=== PATIENT | female | born 1945 | race Caucasian/White ===

== ENCOUNTER → 2017-11-10 | Outpatient (CLI) | payer MEDICARE, OTHER ==
[~2017-11-10] MED LIST: LISI10TA2 PO; OXYCODONE; PANT40TA2 PO; RELAFEN; TURM538C PO
[2017-11-10 10:10] LABS: BASOPHILS % (AUTO) 1 % (0-10); EOSINOPHILS # (AUTO) 0.1 10^3/uL (0.0-0.3); EOSINOPHILS % (AUTO) 1 % (0-10); HEMATOCRIT 39 % (35-52); LYMPHOCYTES # (AUTO) 1.5 X 10^3 (1.0-4.0); LYMPHOCYTES % (AUTO) 26 % (12-44); MEAN CORPUSCULAR HEMOGLOBIN 30 PG (25-34); MEAN CORPUSCULAR HGB CONC 34 G/DL (32-36); MEAN CORPUSCULAR VOLUME 88 FL (80-99); MEAN PLATELET VOLUME 10.1 FL (7.4-10.4); MONOCYTES # (AUTO) 0.4 X 10^3 (0.0-1.0); MONOCYTES % (AUTO) 6 % (0-12); NEUTROPHILS # (AUTO) 3.8 X 10^3 (1.8-7.8); NEUTROPHILS % (AUTO) 66 % (42-75); PLATELET COUNT 252 10^3/uL (130-400); RED BLOOD COUNT 4.38 10^6/uL (4.35-5.85); RED CELL DISTRIBUTION WIDTH 13.4 % (10.0-14.5); WHITE BLOOD COUNT 5.8 10^3/uL (4.3-11.0)
[2017-11-10 10:31] LABS: ALANINE AMINOTRANSFERASE 15 U/L (0-55); ALBUMIN 4.2 GM/DL (3.2-4.5); ALKALINE PHOSPHATASE 111 U/L (40-136); BILIRUBIN,TOTAL 0.9 MG/DL (0.1-1.0); BUN/CREATININE RATIO 17; CALCIUM 9.7 MG/DL (8.5-10.1); CARBON DIOXIDE 28 MMOL/L (21-32); CHLORIDE 106 MMOL/L (98-107); CHOLESTEROL 273 MG/DL (< 200); CREATININE SERUM 0.83 MG/DL (0.60-1.30); GFR ESTIMATED > 60; GLUCOSE 95 MG/DL (70-105); HDL CHOLESTEROL 58 MG/DL (40-60); POTASSIUM 4.8 MMOL/L (3.6-5.0); SODIUM 141 MMOL/L (135-145); TOTAL PROTEIN 7.6 GM/DL (6.4-8.2); TRIGLYCERIDES 186 MG/DL (<150); VLDL CHOLESTEROL 37 MG/DL (5-40)
== END ==
LOC: LAB 09:22
PROVIDERS: ATTEND Nurse Practitioner Family
DX: I10 Essential (primary) hypertension (principal); R53.83 Other fatigue
CPT/HCPCS: 36415; 80053; 80061; 84443; 85025

== ENCOUNTER 2017-12-22 11:55 | Emergency (ER) | payer MEDICARE, OTHER ==
[~2017-12-22] VITALS: Ht 152.4 cm; Wt 71.2 kg
[~2017-12-22 11:55] MED LIST changes: -LISI10TA2 PO; -PANT40TA2 PO; -TURM538C PO
--- NOTE | 2017-12-22 12:21 | ED General ---
General Stated Complaint: RT SIDE PAIN,RADIATING TO BACK Source of Information: Patient Exam Limitations: No Limitations History of Present Illness Date Seen by Provider: December 22, 2017 Time Seen by Provider: 12:18 Initial Comments To ER with reports of right sided upper abdominal pain for 5 years worse for the past 5 days. Pain seems to be worse with movement and food does make this worse sometimes as well. She does report nausea currently and pain rated at 6 out of 10 but declines pain medication or nausea medication. She denies shortness of breath. She does report urinary frequency and her stools seem to be very "beige" Timing/Duration: Getting Worse, Intermittent Severity: Moderate Associated Systoms: Nausea/Vomiting Allergies and Home Medications Allergies Coded Allergies: Hydrocodone (Verified Allergy, PASSING OUT, 04/16/12) ciprofloxacin (Unverified Allergy, 07/21/10) iodine (Unverified Allergy, 07/21/10) Uncoded Allergies: STEROIDS (Adverse Reaction, 07/21/10) Patient Home Medication List Home Medication List Reviewed: Yes Review of Systems Constitutional: see HPI EENTM: see HPI Respiratory: no symptoms reported Cardiovascular: no symptoms reported Gastrointestinal: RUQ, abdominal pain, nausea Genitourinary: no symptoms reported Musculoskeletal: no symptoms reported Skin: no symptoms reported Psychiatric/Neurological: No Symptoms Reported Hematologic/Lymphatic: No Symptoms Reported Immunological/Allergic: no symptoms reported Past Takwzlu-Ceiynr-Ozvjud Hx Patient Social History Recent Foreign Travel: No Contact w/Someone Who Travel: No Physical Exam Vital Signs Vital Signs - First Documented 12/22/17 12:15 Temp 97.2 Pulse 83 Resp 18 B/P (MAP) 182/100 (127) Pulse Ox 98 Capillary Refill : General Appearance: No Apparent Distress, WD/WN Eyes: Bilateral Eye Normal Inspection, Bilateral Eye PERRL, Bilateral Eye EOMI HEENT: PERRL/EOMI, TMs Normal Neck: Full Range of Motion, Normal Inspection Respiratory: No Accessory Muscle Use, No Respiratory Distress Cardiovascular: Regular Rate, Rhythm, Normal Peripheral Pulses Gastrointestinal: Normal Bowel Sounds, Non Tender, Soft Extremity: Normal Capillary Refill, Normal Inspection Neurologic/Psychiatric: Alert, Oriented x3 Skin: Normal Color, Warm/Dry Comments Tenderness to palpation to the very lateral aspect of the right side of the abdomen Progress/Results/Core Measures Suspected Sepsis SIRS Temperature: Pulse: Respiratory Rate: Laboratory Tests 12/22/17 12:15: White Blood Count 5.7 Blood Pressure / Mean: Laboratory Tests 12/22/17 12:15: Creatinine 0.76, INR Comment 0.9, Platelet Count 253, Total Bilirubin 0.5 Results/Orders Lab Results Laboratory Tests Test 12/22/17 12:15 12/22/17 15:00 Range/Units White Blood Count 5.7 4.3-11.0 10^3/uL Red Blood Count 4.16 L 4.35-5.85 10^6/uL Hemoglobin 12.5 11.5-16.0 G/DL Hematocrit 37 35-52 % Mean Corpuscular Volume 88 80-99 FL Mean Corpuscular Hemoglobin 30 25-34 PG Mean Corpuscular Hemoglobin Concent 34 32-36 G/DL Red Cell Distribution Width 13.3 10.0-14.5 % Platelet Count 253 130-400 10^3/uL Mean Platelet Volume 10.6 H 7.4-10.4 FL Neutrophils (%) (Auto) 63 42-75 % Lymphocytes (%) (Auto) 29 12-44 % Monocytes (%) (Auto) 7 0-12 % Eosinophils (%) (Auto) 1 0-10 % Basophils (%) (Auto) 0 0-10 % Neutrophils # (Auto) 3.6 1.8-7.8 X 10^3 Lymphocytes # (Auto) 1.7 1.0-4.0 X 10^3 Monocytes # (Auto) 0.4 0.0-1.0 X 10^3 Eosinophils # (Auto) 0.1 0.0-0.3 10^3/uL Basophils # (Auto) 0.0 0.0-0.1 10^3/uL Prothrombin Time 12.4 12.2-14.7 SEC INR Comment 0.9 0.8-1.4 Sodium Level 139 135-145 MMOL/L Potassium Level 4.2 3.6-5.0 MMOL/L Chloride Level 106 98-107 MMOL/L Carbon Dioxide Level 27 21-32 MMOL/L Anion Gap 6 5-14 MMOL/L Blood Urea Nitrogen 9 7-18 MG/DL Creatinine 0.76 0.60-1.30 MG/DL Estimat Glomerular Filtration Rate > 60 BUN/Creatinine Ratio 12 Glucose Level 82 70-105 MG/DL Calcium Level 9.6 8.5-10.1 MG/DL Total Bilirubin 0.5 0.1-1.0 MG/DL Aspartate Amino Transf (AST/SGOT) 14 5-34 U/L Alanine Aminotransferase (ALT/SGPT) 16 0-55 U/L Alkaline Phosphatase 104 40-136 U/L Total Protein 7.4 6.4-8.2 GM/DL Albumin 4.2 3.2-4.5 GM/DL Urine Color YELLOW Urine Clarity CLEAR Urine pH 7 5-9 Urine Specific [place] 1.010 L 1.016-1.022 Urine Protein NEGATIVE NEGATIVE Urine Glucose (UA) NEGATIVE NEGATIVE Urine Ketones NEGATIVE NEGATIVE Urine Nitrite NEGATIVE NEGATIVE Urine Bilirubin NEGATIVE NEGATIVE Urine Urobilinogen NORMAL NORMAL MG/DL Urine Leukocyte Esterase NEGATIVE NEGATIVE Urine RBC (Auto) NEGATIVE NEGATIVE Urine RBC NONE /HPF Urine WBC NONE /HPF Urine Squamous Epithelial Cells 2-5 /HPF Urine Crystals NONE /LPF Urine Bacteria NEGATIVE /HPF Urine Casts NONE /LPF Urine Mucus NEGATIVE /LPF Urine Culture Indicated NO My Orders Orders - CARTER NAZARIO APRN Cbc With Automated Diff (12/22/17 12:17) Comprehensive Metabolic Panel (12/22/17 12:17) Ua Culture If Indicated (12/22/17 12:17) Protime With Inr (12/22/17 12:17) Iv Heplock-Insert (Order) (12/22/17 12:17) Us Gallbladder [id number] (12/22/17 12:17) Ct Abdomen/Pelvis Wo (12/22/17 13:49) Vital Signs/I&O 12/22/17 12:15 Temp 97.2 Pulse 83 Resp 18 B/P (MAP) 182/100 (127) Pulse Ox 98 Capillary Refill : Departure Impression Primary Impression: Diaphragmatic hernia Additional Impression: Right upper quadrant abdominal pain Disposition: HOME, SELF-CARE Condition: Stable Departure-Patient Inst. Decision time for Depature: 15:55 Referrals: NO,LOCAL PHYSICIAN (PCP) Primary Care Physician DEMI LEE APRN (Family) Primary Care Physician Patient Instructions: No Instuctions Given Add. Discharge Instructions: 1. Call today to make an appointment for follow-up with Dr. Chavis's clinic. Return to ER for any worsening pain fevers or other concerns. Copy Copies To 1: JARRELL CHAVIS PETER J APRN December 22, 2017 12:21
[2017-12-22 12:30] LABS: BASOPHILS % (AUTO) 0 % (0-10); EOSINOPHILS # (AUTO) 0.1 10^3/uL (0.0-0.3); EOSINOPHILS % (AUTO) 1 % (0-10); HEMATOCRIT 37 % (35-52); HEMOGLOBIN 12.5 G/DL (11.5-16.0); LYMPHOCYTES # (AUTO) 1.7 X 10^3 (1.0-4.0); LYMPHOCYTES % (AUTO) 29 % (12-44); MEAN CORPUSCULAR HEMOGLOBIN 30 PG (25-34); MEAN CORPUSCULAR HGB CONC 34 G/DL (32-36); MEAN CORPUSCULAR VOLUME 88 FL (80-99); MEAN PLATELET VOLUME 10.6 FL (7.4-10.4); MONOCYTES # (AUTO) 0.4 X 10^3 (0.0-1.0); MONOCYTES % (AUTO) 7 % (0-12); NEUTROPHILS # (AUTO) 3.6 X 10^3 (1.8-7.8); NEUTROPHILS % (AUTO) 63 % (42-75); PLATELET COUNT 253 10^3/uL (130-400); RED BLOOD COUNT 4.16 10^6/uL (4.35-5.85); RED CELL DISTRIBUTION WIDTH 13.3 % (10.0-14.5); WHITE BLOOD COUNT 5.7 10^3/uL (4.3-11.0)
[2017-12-22 12:38] LABS: INR 0.9 (0.8-1.4); PROTHROMBIN TIME PATIENT 12.4 SEC (12.2-14.7)
[2017-12-22 12:44] LABS: ALANINE AMINOTRANSFERASE 16 U/L (0-55); ALBUMIN 4.2 GM/DL (3.2-4.5); ALKALINE PHOSPHATASE 104 U/L (40-136); BILIRUBIN,TOTAL 0.5 MG/DL (0.1-1.0); BUN/CREATININE RATIO 12; CALCIUM 9.6 MG/DL (8.5-10.1); CARBON DIOXIDE 27 MMOL/L (21-32); CHLORIDE 106 MMOL/L (98-107); CREATININE SERUM 0.76 MG/DL (0.60-1.30); GFR ESTIMATED > 60; GLUCOSE 82 MG/DL (70-105); POTASSIUM 4.2 MMOL/L (3.6-5.0); SODIUM 139 MMOL/L (135-145); TOTAL PROTEIN 7.4 GM/DL (6.4-8.2)
--- NOTE | 2017-12-22 13:06 | Diagnostic Imaging Report ---
EXAM: RIGHT UPPER QUADRANT ULTRASOUND. DATE: December 22, 2017. COMPARISON: CT abdomen and pelvis March 22, 2010. INDICATION: 72-year-old female, right-sided abdominal pain. PROCEDURE: Two-dimensional grayscale and color Doppler ultrasound examination of the right upper quadrant is performed. FINDINGS: Liver: The liver is of normal size and echotexture without solid or cystic masses. Bile ducts and gallbladder: There is no pericholecystic fluid, gallbladder wall thickening, or gallstones. The gallbladder wall measures 0.2 cm. There is no intrahepatic bile duct dilation. The common bile duct is not well demonstrated. Right kidney: Unremarkable right kidney. No hydronephrosis. The right kidney measures 8.8 cm x 4.2 cm x 4.3 cm. Pancreas: The pancreas is not well seen. IMPRESSION: 1. No evidence of cholelithiasis or findings to suggest acute cholecystitis. 2. No intrahepatic bile duct dilation. The common bile duct is not well seen. 3. Unremarkable sonographic appearance of the liver parenchyma. 4. The pancreas is not well seen. Dictated by: Dictated on workstation # [id number]
--- NOTE | 2017-12-22 14:21 | Diagnostic Imaging Report ---
PROCEDURE: CT abdomen and pelvis without contrast. TECHNIQUE: Multiple contiguous axial images were obtained through the abdomen and pelvis without the use of intravenous contrast. INDICATION: Mid abdomen pain on the right for seven days. Allergy to iodine reported. COMPARISON: 03/22/2010. FINDINGS: The lung bases are clear. There is a small fat-containing diaphragmatic hernia posteriorly on the right, which appears stable. The heart is normal in size. There is no pericardial effusion. A small hiatal hernia is present. The liver is unremarkable. The spleen appears normal. The adrenal glands are normal. The pancreas is unremarkable. The kidneys appear normal with no hydronephrosis or calculi present. The bowel loops are nondistended without evidence of obstruction. The appendix is not definitely seen; however, no secondary signs of appendicitis are identified. There is no free fluid or free air seen. There is mild calcific atherosclerosis. No lymph nodes appear enlarged by CT size criteria. Degenerative changes are seen in the spine. No acute osseous abnormality is seen. IMPRESSION: 1. No acute abdominopelvic abnormality is seen. 2. Stable small right fat-containing diaphragmatic hernia and small hiatal hernia. Dictated by: Dictated on workstation # [id number]
[2017-12-22 15:15] LABS: BILIRUBIN,URINE NEGATIVE (NEGATIVE); CLARITY,URINE CLEAR; COLOR,URINE YELLOW; GLUCOSE, URINE (UA) NEGATIVE (NEGATIVE); KETONES,URINE NEGATIVE (NEGATIVE); LEUKOCYTE ESTERASE ,URINE NEGATIVE (NEGATIVE); NITRITE,URINE NEGATIVE (NEGATIVE); PH,URINE 7 (5-9); PROTEIN,URINE NEGATIVE (NEGATIVE); UROBILINOGEN,URINE NORMAL (NORMAL)
[2017-12-22 15:28] LABS: BACTERIA,URINE NEGATIVE /HPF
[2017-12-22 16:14] VITALS: BP 182/88
== END 2017-12-22 16:14 | disposition home or self-care (01) ==
LOC: EDUNIT# 11:55 → ER 11:57
DX: K44.9 Diaphragmatic hernia without obstruction or gangrene (principal); Z88.5 Allergy status to narcotic agent; Z88.1 Allergy status to other antibiotic agents; Z91.041 Radiographic dye allergy status
CPT/HCPCS: 36415; 74176; 76705; 80053; 81000; 85025; 85610

== ENCOUNTER 2018-01-13 05:40 | Outpatient (CLI) | payer MEDICARE, OTHER ==
[~2018-01-13] VITALS: Ht 152.4 cm; Wt 71.2 kg
[2018-01-13] MEDS ORDERED: LISI10TA2 PO (11:54)
[2018-01-13] MEDS ORDERED: TURM538C PO (11:54)
== END 2018-01-13 11:59 | disposition home or self-care (01) ==
LOC: PREOP 05:40
PROVIDERS: ATTEND Surgery
DX: Z01.818 Encounter for other preprocedural examination (principal)

== ENCOUNTER 2018-02-03 09:44 | Day surgery (SDC) | payer MEDICARE, OTHER ==
[~2018-02-03] VITALS: Ht 152.4 cm; Wt 71.2 kg
[~2018-02-03 09:44] MED LIST changes: +LISI10TA2 PO; +TURM538C PO
--- OUTSIDE RECORDS SUMMARY | 2018-02-03 09:48 | XMS REPORT | Continuity of Care Document ---
Author Author [facility] Organization [facility] Address Unknown Phone Unavailable Allergies Active Description Code Type Severity Reaction Onset Reported/Identified Relationship to Patient Clinical Status Yes ANTIBIOTICS EXCEPT AUGMENTIN UNKNOWN OTHER Yes CIPRO UNKNOWN DERMATOLOGICAL - ANTONETTE Yes STEROIDS UNKNOWN OTHER Yes ciprofloxacin [id number] Drug Allergy Unknown N/A 01/13/2018 Yes hydrocodone [id number] Drug Allergy Unknown PASSING OUT 01/13/2018 Yes iodine [id number] Drug Allergy Unknown N/A 01/13/2018 Yes STEROIDS STEROIDS Unknown N/A 01/13/2018 Medications Medication Packaging Start Date Stop Date Route Dosage Sig MECLIZINE TAB 25 MG (ANTIVERT) MG 08/16/2017 08/16/2017 PRN ONCE LISINOPRIL TAB 10 MG (ZESTRIL) MG 08/16/2017 08/16/2017 ONCE&1201 Problems Date Dx Coded Attending Type Code Diagnosis Diagnosed By 07/21/2010 Ot 719.45 07/21/2010 Ot 789.09 04/16/2012 Ot 816.01 04/16/2012 Ot 883.0 04/16/2012 Ot 959.5 04/16/2012 Ot E000.8 04/16/2012 Ot E849.0 04/16/2012 Ot E918 02/16/2015 Ot 789.01 02/16/2015 Ot V88.01 02/16/2015 Ot 715.09 02/16/2015 Ot 729.1 02/16/2015 Ot V58.69 02/16/2015 TURNER LOPEZ, DEDRICK Riley Ot V76.12 02/16/2015 RAMON LOPEZ, URSULA Garnett Ot 724.5 02/16/2015 RAMON LOPEZ, URSULA Garnett Ot 737.30 02/16/2015 RAMON LOPEZ, URSULA Garnett Ot V72.62 02/16/2015 RAMON LOPEZ, URSULA Garnett Ot V76.12 02/16/2015 KETURAH DEL RIO FORGING PRESS LEVER TENDER Ot V76.12 03/09/2015 KETURAH DEL RIO FORGING PRESS LEVER TENDER Ot V76.12 08/16/2017 JOVANA DELGADO W 461.9 ACUTE SINUSITIS, UNSPECIFIED 08/16/2017 MARIBELLGLMEMO MILLERARA W 599.0 URINARY TRACT INFECTION, SITE NOT SPECIFIED 08/16/2017 MARIBELLGLMEMO MILLERARA A 780.4 DIZZINESS AND GIDDINESS 08/16/2017 BATCATGLANGELA JOVANA W J01.90 ACUTE SINUSITIS, UNSPECIFIED 08/16/2017 BATTAGLER JOVANA W N39.0 URINARY TRACT INFECTION, SITE NOT SPECIFIED 08/16/2017 BRITTNYTAMEMO CNOTEARA A R42 DIZZINESS AND GIDDINESS 11/10/2017 TURNER LOPEZ, DEDRICK Riley Ot V76.12 OTH SCREEN MAMMO-MALIGN NEOPLASM OF [place]ACH[place] 11/10/2017 RAMON LOPEZ, URSULA Garnett Ot 724.5 BACKACHE NOS 11/10/2017 RAMON LOPEZ, URSULA Garnett Ot 737.30 IDIOPATHIC SCOLIOSIS 11/10/2017 RAOMN LOPEZ, URSULA Garnett Ot V72.62 LAB EXAM ORDERED PART OF A ROUTINE GE 11/10/2017 RAMON LOPEZ, URSULA Garnett Ot V76.12 OTH SCREEN MAMMO-MALIGN NEOPLASM OF [place] 11/10/2017 KETURAH DEL RIO FORGING PRESS LEVER TENDER Ot V76.12 OTH SCREEN MAMMO-MALIGN NEOPLASM OF [place] 11/11/2017 DEMI LEE R BEHAVIORAL HEALTH COUNSELOR Ot I10 ESSENTIAL (PRIMARY) HYPERTENSION 11/11/2017 DEMI LEE R BEHAVIORAL HEALTH COUNSELOR Ot R53.83 OTHER FATIGUE 12/01/2017 ROSA DEMI R BEHAVIORAL HEALTH COUNSELOR Ot I10 ESSENTIAL (PRIMARY) HYPERTENSION 12/01/2017 YOLIS LEEINA R BEHAVIORAL HEALTH COUNSELOR Ot R53.83 OTHER FATIGUE 12/22/2017 ROSA DEMI R BEHAVIORAL HEALTH COUNSELOR Ot I10 ESSENTIAL (PRIMARY) HYPERTENSION 12/22/2017 DEMI LEE R BEHAVIORAL HEALTH COUNSELOR Ot R53.83 OTHER FATIGUE 12/22/2017 CARTER NAZARIO BEHAVIORAL HEALTH COUNSELOR Ot K44.9 DIAPHRAGMATIC HERNIA WITHOUT OBSTRUCTION 12/22/2017 CARTER NAZARIO APRN Ot R10.11 RIGHT UPPER QUADRANT PAIN 12/22/2017 CARTER NAZARIO BEHAVIORAL HEALTH COUNSELOR Ot Z88.1 ALLERGY STATUS TO OTHER ANTIBIOTIC AGENT 12/22/2017 CARTER NAZARIO BEHAVIORAL HEALTH COUNSELOR Ot Z88.5 ALLERGY STATUS TO NARCOTIC AGENT STATUS 12/22/2017 CARTER NAZARIO BEHAVIORAL HEALTH COUNSELOR Ot Z91.041 RADIOGRAPHIC DYE ALLERGY STATUS 12/24/2017 CARTER NAZARIO BEHAVIORAL HEALTH COUNSELOR Ot K44.9 DIAPHRAGMATIC HERNIA WITHOUT OBSTRUCTION 12/24/2017 CARTER NAZARIO BEHAVIORAL HEALTH COUNSELOR Ot R10.11 RIGHT UPPER QUADRANT PAIN 12/24/2017 CARTER NAZARIO BEHAVIORAL HEALTH COUNSELOR Ot Z88.1 ALLERGY STATUS TO OTHER ANTIBIOTIC AGENT 12/24/2017 CARTER NAZARIO BEHAVIORAL HEALTH COUNSELOR Ot Z88.5 ALLERGY STATUS TO NARCOTIC AGENT STATUS 12/24/2017 CARTER NAZARIO BEHAVIORAL HEALTH COUNSELOR Ot Z91.041 RADIOGRAPHIC DYE ALLERGY STATUS 01/13/2018 SUNG LOPEZ, WILMA Ot Z01.818 ENCOUNTER FOR OTHER PREPROCEDURAL EXAMIN 02/01/2018 DEDRICK TOMPKINS MD Ot V76.12 OTH SCREEN MAMMO-MALIGN NEOPLASM OF [place] 02/01/2018 URSULA NAVARRO MD Ot 724.5 BACKACHE NOS 02/01/2018 URSULA NAVARRO MD Ot 737.30 IDIOPATHIC SCOLIOSIS 02/01/2018 URSULA NAVARRO MD Ot V72.62 LAB EXAM ORDERED PART OF A ROUTINE GE 02/01/2018 URSULA NAVARRO MD Ot V76.12 OTH SCREEN MAMMO-MALIGN NEOPLASM OF PRACHI 02/01/2018 KETURAH DEL RIO Ot V76.12 OTH SCREEN MAMMO-MALIGN NEOPLASM OF [place] 02/01/2018 DEMI LEE BEHAVIORAL HEALTH COUNSELOR Ot I10 ESSENTIAL (PRIMARY) HYPERTENSION 02/01/2018 DEMI LEE BEHAVIORAL HEALTH COUNSELOR Ot R53.83 OTHER FATIGUE 02/01/2018 DEDRICK TOMPKINS MD Ot V76.12 OTH SCREEN MAMMO-MALIGN NEOPLASM OF [place] 02/01/2018 URSULA NAVARRO MD Ot 724.5 BACKACHE NOS 02/01/2018 URSULA NAVARRO MD Ot 737.30 IDIOPATHIC SCOLIOSIS 02/01/2018 URSULA NAVARRO MD Ot V72.62 LAB EXAM ORDERED PART OF A ROUTINE GE 02/01/2018 URSULA NAVARRO MD Ot V76.12 OTH SCREEN MAMMO-MALIGN NEOPLASM OF PRACHI 02/01/2018 KETURAH DEL RIO Ot V76.12 OTH SCREEN MAMMO-MALIGN NEOPLASM OF [place] 02/01/2018 DEMI LEE APRN Ot I10 ESSENTIAL (PRIMARY) HYPERTENSION 02/01/2018 DEMI LEE APRN Ot R53.83 OTHER FATIGUE Procedures There is no data. Results Test Result Range Sed Rate - 12/08/16 10:35 Sed Rate 25 mm/hr 9-15 Sed Rate - 01/08/17 11:46 Sed Rate 28 mm/hr 9-15 CCP Antibodies IgG/IgA - 01/08/17 11:46 CCP ANTIBODIES IGG/IGA >250 UNITS 0-19 HCV Antibody - 01/08/17 11:46 Hep C Virus Ab <0.1 S/CO RATIO 0.0-0.9 Urinalysis - 08/16/17 12:15 Icotest N/A Negative Urine Volume Urine Volume Sufficient (10mL) Urine-Appearance Clear Clear Urine-Bacteria 2+ Urine-Bilirubin Negative Negative Urine-Blood Trace-intact Negative Urine-Color Yellow Colorless-Lt. Yellow Urine-Epithelial Cells 0-5/HPF Urine-Glucose Negative Negative Urine-Ketones Negative Negative Urine-Leukocytes Trace Negative Urine-Nitrite Negative Negative Urine-Other Urine Saved if Culture Needed (48hrs from time of collection) Urine-pH 6.0 5-8.5 Urine-Protein Negative Negative Urine-RBC 0-2/HPF Urine-Specific [place] <=1.005 1.000-1.030 Urine-WBC 2-5/HPF Urobilinogen 0.2 E.U./dL 0.2-1.0 Cardiac Panel - 08/16/17 12:15 CK 39 U/L 26-174 CK-MB 1.0 ng/ml 0.0-9.2 Myoglobin 26.9 ng/ml 1.6-106.0 Troponin <0.020 ng/mL 0.0-0.4 Urine Culture - 08/16/17 14:13 PRELIM CULTURE RESULTS No Growth 24 hours FINAL CULTURE RESULTS 10,000-20,000 Gram Positive Mixed Christina [id number] Skin Contaminant [id number] Further Workup done MEDIA PLATED Setup at 15:00 on 08/16/2017 ck CULTURE SOURCE [id number]\ Complete blood count (CBC) with automated white blood cell (WBC) differential - 11/10/17 10:00 Blood leukocytes automated count (number/volume) 5.8 10*3/uL 4.3-11.0 Blood erythrocytes automated count (number/volume) 4.38 10*6/uL 4.35-5.85 Venous blood hemoglobin measurement (mass/volume) 13.0 g/dL 11.5-16.0 Blood hematocrit (volume fraction) 39 % 35-52 Automated erythrocyte mean corpuscular volume 88 [foz_us] 80-99 Automated erythrocyte mean corpuscular hemoglobin (mass per erythrocyte) 30 pg 25-34 Automated erythrocyte mean corpuscular hemoglobin concentration measurement ( mass/volume) 34 g/dL 32-36 Automated erythrocyte distribution width ratio 13.4 % 10.0-14.5 Automated blood platelet count (count/volume) 252 10*3/uL 130-400 Automated blood platelet mean volume measurement 10.1 [foz_us] 7.4-10.4 Automated blood neutrophils/100 leukocytes 66 % 42-75 Automated blood lymphocytes/100 leukocytes 26 % 12-44 Blood monocytes/100 leukocytes 6 % 0-12 Automated blood eosinophils/100 leukocytes 1 % 0-10 Automated blood basophils/100 leukocytes 1 % 0-10 Blood neutrophils automated count (number/volume) 3.8 10*3 1.8-7.8 Blood lymphocytes automated count (number/volume) 1.5 10*3 1.0-4.0 Blood monocytes automated count (number/volume) 0.4 10*3 0.0-1.0 Automated eosinophil count 0.1 10*3/uL 0.0-0.3 Automated blood basophil count (count/volume) 0.0 10*3/uL 0.0-0.1 Comprehensive metabolic panel - 11/10/17 10:00 Serum or plasma sodium measurement (moles/volume) 141 mmol/L 135-145 Serum or plasma potassium measurement (moles/volume) 4.8 mmol/L 3.6-5.0 Serum or plasma chloride measurement (moles/volume) 106 mmol/L 98-107 Carbon dioxide 28 mmol/L 21-32 Serum or plasma anion gap determination (moles/volume) 7 mmol/L 5-14 Serum or plasma urea nitrogen measurement (mass/volume) 14 mg/dL 7-18 Serum or plasma creatinine measurement (mass/volume) 0.83 mg/dL 0.60-1.30 Serum or plasma urea nitrogen/creatinine mass ratio 17 NRG Serum or plasma creatinine measurement with calculation of estimated glomerular filtration rate > NRG Serum or plasma glucose measurement (mass/volume) 95 mg/dL 70-105 Serum or plasma calcium measurement (mass/volume) 9.7 mg/dL 8.5-10.1 Serum or plasma total bilirubin measurement (mass/volume) 0.9 mg/dL 0.1-1.0 Serum or plasma alkaline phosphatase measurement (enzymatic activity/volume) 111 U/L 40-136 Serum or plasma aspartate aminotransferase measurement (enzymatic activity/ volume) 16 U/L 5-34 Serum or plasma alanine aminotransferase measurement (enzymatic activity/volume ) 15 U/L 0-55 Serum or plasma protein measurement (mass/volume) 7.6 g/dL 6.4-8.2 Serum or plasma albumin measurement (mass/volume) 4.2 g/dL 3.2-4.5 Lipid 1996 panel - 11/10/17 10:00 Serum or plasma triglyceride measurement (mass/volume) 186 mg/dL <150 Serum or plasma cholesterol measurement (mass/volume) 273 mg/dL < 200 Serum or plasma cholesterol in HDL measurement (mass/volume) 58 mg/ dL 40-60 Cholesterol in LDL [mass/volume] in serum or plasma by direct assay 193 mg/dL 1-129 Serum or plasma cholesterol in VLDL measurement (mass/volume) 37 mg/ dL 5-40 THYROID STIMULATING HORMONE - 11/10/17 10:00 THYROID STIMULATING HORMONE 1.59 u[iU]/mL 0.35-4.94 Complete blood count (CBC) with automated white blood cell (WBC) differential - 12/22/17 12:15 Blood leukocytes automated count (number/volume) 5.7 10*3/uL 4.3-11.0 Blood erythrocytes automated count (number/volume) 4.16 10*6/uL 4.35-5.85 Venous blood hemoglobin measurement (mass/volume) 12.5 g/dL 11.5-16.0 Blood hematocrit (volume fraction) 37 % 35-52 Automated erythrocyte mean corpuscular volume 88 [foz_us] 80-99 Automated erythrocyte mean corpuscular hemoglobin (mass per erythrocyte) 30 pg 25-34 Automated erythrocyte mean corpuscular hemoglobin concentration measurement ( mass/volume) 34 g/dL 32-36 Automated erythrocyte distribution width ratio 13.3 % 10.0-14.5 Automated blood platelet count (count/volume) 253 10*3/uL 130-400 Automated blood platelet mean volume measurement 10.6 [foz_us] 7.4-10.4 Automated blood neutrophils/100 leukocytes 63 % 42-75 Automated blood lymphocytes/100 leukocytes 29 % 12-44 Blood monocytes/100 leukocytes 7 % 0-12 Automated blood eosinophils/100 leukocytes 1 % 0-10 Automated blood basophils/100 leukocytes 0 % 0-10 Blood neutrophils automated count (number/volume) 3.6 10*3 1.8-7.8 Blood lymphocytes automated count (number/volume) 1.7 10*3 1.0-4.0 Blood monocytes automated count (number/volume) 0.4 10*3 0.0-1.0 Automated eosinophil count 0.1 10*3/uL 0.0-0.3 Automated blood basophil count (count/volume) 0.0 10*3/uL 0.0-0.1 PT panel in platelet poor plasma by coagulation assay - 12/22/17 12:15 Prothrombin time (PT) in platelet poor plasma by coagulation assay 12.4 s 12.2-14.7 INR in platelet poor plasma or blood by coagulation assay 0.9 0.8-1.4 Comprehensive metabolic panel - 12/22/17 12:15 Serum or plasma sodium measurement (moles/volume) 139 mmol/L 135-145 Serum or plasma potassium measurement (moles/volume) 4.2 mmol/L 3.6-5.0 Serum or plasma chloride measurement (moles/volume) 106 mmol/L 98-107 Carbon dioxide 27 mmol/L 21-32 Serum or plasma anion gap determination (moles/volume) 6 mmol/L 5-14 Serum or plasma urea nitrogen measurement (mass/volume) 9 mg/dL 7-18 Serum or plasma creatinine measurement (mass/volume) 0.76 mg/dL 0.60-1.30 Serum or plasma urea nitrogen/creatinine mass ratio 12 NRG Serum or plasma creatinine measurement with calculation of estimated glomerular filtration rate > NRG Serum or plasma glucose measurement (mass/volume) 82 mg/dL 70-105 Serum or plasma calcium measurement (mass/volume) 9.6 mg/dL 8.5-10.1 Serum or plasma total bilirubin measurement (mass/volume) 0.5 mg/dL 0.1-1.0 Serum or plasma alkaline phosphatase measurement (enzymatic activity/volume) 104 U/L 40-136 Serum or plasma aspartate aminotransferase measurement (enzymatic activity/ volume) 14 U/L 5-34 Serum or plasma alanine aminotransferase measurement (enzymatic activity/volume ) 16 U/L 0-55 Serum or plasma protein measurement (mass/volume) 7.4 g/dL 6.4-8.2 Serum or plasma albumin measurement (mass/volume) 4.2 g/dL 3.2-4.5 Complete urinalysis with reflex to culture - 12/22/17 15:00 Urine color determination YELLOW NRG Urine clarity determination CLEAR NRG Urine pH measurement by test strip 7 5-9 Specific gravity of urine by test strip 1.010 1.016- 1.022 Urine protein assay by test strip, semi-quantitative NEGATIVE NEGATIVE Urine glucose detection by automated test strip NEGATIVE NEGATIVE Erythrocytes detection in urine sediment by light microscopy NEGATIVE NEGATIVE Urine ketones detection by automated test strip NEGATIVE NEGATIVE Urine nitrite detection by test strip NEGATIVE NEGATIVE Urine total bilirubin detection by test strip NEGATIVE NEGATIVE Urine urobilinogen measurement by automated test strip (mass/volume) NORMAL NORMAL Urine leukocyte esterase detection by dipstick NEGATIVE NEGATIVE Automated urine sediment erythrocyte count by microscopy (number/high power field) NONE NRG Automated urine sediment leukocyte count by microscopy (number/high power field ) NONE NRG Bacteria detection in urine sediment by light microscopy NEGATIVE NRG Squamous epithelial cells detection in urine sediment by light microscopy 2-5 NRG Crystals detection in urine sediment by light microscopy NONE NRG Casts detection in urine sediment by light microscopy NONE NRG Mucus detection in urine sediment by light microscopy NEGATIVE NRG Complete urinalysis with reflex to culture NO NRG Encounters ACCT No. Visit Date/Time Discharge Status Pt. Type Provider Facility Loc./Unit Complaint [id number] 01/20/2018 12:15:00 01/20/2018 23:59:59 CLS Preadmit WILMA ALMARAZ MD [facility] ENDO ABD PAIN/SCREENING [id number] 01/13/2018 05:40:00 01/13/2018 11:59:00 DIS Outpatient WILMA ALMARAZ MD [facility] PREOP COLONOSCOPY/EGD [id number] 12/22/2017 11:57:00 12/22/2017 16:14:00 DIS Emergency CARTER NAZARIO APRN [facility] ER RT SIDE PAIN,RADIATING TO BACK [id number] 11/10/2017 09:22:00 11/10/2017 23:59:59 CLS Outpatient DEMI LEE APRN [facility] LAB R53.83,Z87.09 [id number] 02/14/2015 09:28:00 02/14/2015 23:59:59 CLS Outpatient KETURAH DEL RIO [facility] RAD SCREENING [id number] 01/25/2014 09:00:00 01/25/2014 23:59:59 CLS Outpatient URSULA NAVARRO MD [facility] RAD SCREENING [id number] 01/03/2013 12:05:00 01/03/2013 23:59:59 CLS Outpatient DEDRICK TOMPKINS MD [facility] RAD SCREENING [id number] 02/16/2015 11:37:00 Document Registration [id number] 02/16/2015 11:37:00 Document Registration [id number] 04/16/2012 10:56:00 Document Registration [id number] 01/26/2012 07:16:00 Document Registration [id number] 07/21/2010 07:49:00 Document Registration [id number] 03/22/2010 10:27:00 Document Registration [id number] 08/16/2017 11:45:00 08/16/2017 14:27:00 DIS Outpatient [facility] ER [id number] 05/29/2017 10:57:00 05/29/2017 23:59:00 DIS Outpatient Marilynn Mendez [id number] 01/08/2017 11:38:00 01/08/2017 23:59:00 DIS Outpatient Aris Lorenzo B [id number] 12/08/2016 10:27:00 12/08/2016 23:59:00 DIS Outpatient Marilynn Mendez [id number] 08/16/2017 12:02:01 Document Registration [id number] 02/14/2015 09:29:29 ACT Document Registration [id number] 08/16/2017 11:45:00 Document Registration
[2018-02-03 09:50] VITALS: BP 167/78
[2018-02-03] MEDS ORDERED: NS IV 500 ML 500 ML ONE (10:04)
[2018-02-03] MEDS ORDERED: fentaNYL INJECTION 100 MCG/2 ML AMP ONE ×2 (10:13→10:51)
[2018-02-03] MEDS ORDERED: NS IV 500 ML 500 ML IV PRN (10:13)
[2018-02-03] MEDS ORDERED: LIDOCAINE JELLY 2% (XYLOCAINE) 5 ML TUBE ONE ×2 (10:13→10:51)
[2018-02-03] MEDS ORDERED: MIDAZOLAM 2 MG/2 ML (VERSED) VIAL ONE ×8 (10:13→10:52)
[2018-02-03] MEDS ORDERED: HURRICAINE EXT TUBE (BENZOCAINE) XX PRN (10:15)
[2018-02-03] MEDS ORDERED: LIDOCAINE JELLY 2% (XYLOCAINE) 5 ML TUBE MM PRN (10:15)
--- NOTE | 2018-02-03 10:23 | Conscious Sedation/ASA ---
Conscious Sedation Pre-Proced Time Reviewed: 10:20 ASA Class: 2 Airway Mallampati Classification: ([place] appropriate class) I. II. III, IV Lungs Heart ASA score ASA 1: a normal healthy patient ASA 2: a patient with a mild systemic disease (mid diabetes, controlled hypertension, obesity ASA 3: a patient with a severe systemic disease that limits activity (angina , COPD, prior Myocardial infarction) ASA 4: a patient with an incapacitating disease that is a constant threat to life (CHF, renal failure) ASA 5: a moribund patient not expected to survive 24 hrs. (ruptured aneurysm) ASA 6: a declared brain patient whose organs are being harvested. For emergent operations, add the letter E after the classification Grade 2 Sedation Plan: Analgesia, Amnesia, Plan communicated to team members, Discussed options with patient/fam, Discussed risks with patient/fam Note The patient is an appropriate candidate to undergo the planned procedure, sedation, and anesthesia. The patient immediately re-assessed prior to indication. WILMA ALMARAZ MD Feb 03, 2018 10:23 am
--- NOTE | 2018-02-03 10:24 | Progress Note-Pre Operative ---
Pre-Operative Progress Note H&P Reviewed The H&P was reviewed, patient examined and no changes noted. Date Seen by Provider: Feb 03, 2018 Time Seen by Provider: 10:20 Date H&P Reviewed: Feb 03, 2018 Time H&P Reviewed: :20 Pre-Operative Diagnosis: GERD, chest pain, hiatal hernia, diaphragmatic hernia , screening WILMA ALMARAZ MD Feb 03, 2018 10:24 am
[2018-02-03] MEDS ORDERED: ACETAMINOPHEN 325 MG TABLET PO PRN (10:30)
[2018-02-03] MEDS ORDERED: morphine INJ 10 MG/ML 1ML (SYR OR VIAL) IV PRN (10:30)
[2018-02-03] MEDS ORDERED: ONDANSETRON 4 MG/2 ML (SDV) Z0FRAN IV PRN (10:30)
[2018-02-03] MEDS ORDERED: HURRICAINE EXT TUBE (BENZOCAINE) ONE (10:52)
[2018-02-03] MEDS: fentaNYL INJECTION 100 MCG/2 ML AMP IVP PRN ×2 (10:58→11:20)
[2018-02-03] MEDS: MIDAZOLAM 2 MG/2 ML (VERSED) VIAL IVP PRN ×5 (10:59→11:30)
--- NOTE | 2018-02-03 12:02 | Progress Note-Post Operative ---
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 chronic stage 1 ext and int hemorrhoids. Procedure & Operative Findings Date of Procedure 02/03/18 Procedure Performed/Findings EGD with bx. Colonoscopy. Anesthesia Type CS Estimated Blood Loss Estimated blood loss (mL): minimal Specimens/Packing Specimens Removed GE jxn, antrum WILMA ALMARAZ MD Feb 03, 2018 12:02 pm
[2018-02-03 12:05] VITALS: BP 114/68
[2018-02-03] MEDS ORDERED: PANT40TA2 PO (12:06)
--- NOTE | 2018-02-03 12:07 | Discharge Inst-Surgical ---
D/C Lap Instructions-KIDDamion New, Converted, or Re-Newed RX: RX on Chart Follow Up 1 week Activity as tolerated High Fiber Diet 25g or more per day Avoid Alcohol, Caffeine, Spicy Magness and Acid foods. Drink 64 fluid oz or more of fluids per day. Symptoms to Report: Fever over 101 degree F, Nausea/Vomiting If any problems/questions: Contact your physician or go to Emergency Room WILMA ALMARAZ MD Feb 03, 2018 12:07 pm
[2018-02-03 12:35] VITALS: BP 110/68
[2018-02-03 12:49] VITALS: BP 110/68
--- NOTE | 2018-02-03 14:36 | OPERATIVE REPORT ---
DATE OF SERVICE: 02/03/2018 ATTENDING PRIMARY CLEARING HOUSE CLERK: Sarai Calderón APRN. PREOPERATIVE DIAGNOSES: Chest pain, right upper abdominal quadrant pain, gastroesophageal reflux disease and screening colonoscopy. POSTOPERATIVE DIAGNOSES: Reflux esophagitis class B, moderate sized hiatal hernia approximately 2 to 2.5 cm in size, moderate gastritis with a small healed pyloric ulcer. Chronic stage I external and internal hemorrhoids. The colon and rectum were normal. PROCEDURES: EGD with biopsy and colonoscopy. SURGEON: Wilma Almaraz MD. ANESTHESIA: Conscious sedation. ESTIMATED BLOOD LOSS: Minimal. FINDINGS: EGD, reflux esophagitis class B, moderate sized hiatal hernia, which was symptomatic upon insufflation. Moderate gastritis with a healing pyloric ulcer approximately 3 mm in size. Duodenum appeared normal. Colonoscopy; chronic stage I external and internal hemorrhoids. Remainder of the rectum and colon were normal. DISPOSITION: The patient tolerated the procedure well. INDICATIONS FOR PROCEDURE: The patient is a 72-year-old female with right upper abdominal quadrant pain as well as chest pain. She presented to the emergency department on 12/22/2017 for this discomfort, which was much more severe in nature that day. She underwent a gallbladder ultrasound, which did not show any gallstones. A CT scan was performed, which did show a small fat containing diaphragmatic hernia posterior and to the right. There was also a hiatal hernia present. Since being discharged, she reports that the pain did subside; however, she does have the episodic pain upon lifting and exertion as well as eating too much. She also does report that she has gastroesophageal reflux disease. She also has not had a colonoscopy up to this point in her life. She does not report any red blood per rectum nor any dark tarry stools as well as no family history of colon cancer. DESCRIPTION OF PROCEDURE: The patient was brought to the endoscopy suite and laid in the left lateral decubitus position. After adequate IV pain and sedating medications and conscious sedation anesthesia, the mouthpiece was applied. The endoscope was placed in the mouth, visualizing the pharynx and hypopharyngeal region. Vocal cords, epiglottis and vallecula identified and appeared to be normal. The endoscope was then gently intubated, the esophageal opening and esophagus insufflated. The endoscope was then advanced to the first, second and third portion of the esophagus at the level of the GE junction, a reflux esophagitis class B identified. There were no ulcers or strictures identified in this region. A biopsy was taken with forceps with visualization of good hemostasis. The endoscope was then advanced into the stomach and endoscope retroflexed visualizing no hiatal hernia. Upon insufflation and pressure exerted on to the mediastinum, the patient did show significant discomfort. The hiatal hernia was identified approximately 2.5 cm in size. There was a moderate severity gastritis and a small healed pyloric ulcer identified, which was biopsied with forceps with visualization of good hemostasis. The endoscope was then advanced to the pylorus with ease first and second portion of the duodenum, which appeared normal and no distal obstructions. The endoscope was then slowly withdrawn while taking a second look and suctioning residual air with no additional findings. The patient tolerated this portion of the procedure well. It appears that she does have an acquired small diaphragmatic hernia arising from a hiatal hernia. The diaphragmatic hernia is more posterior and to the right. If this was more of a congenital anomaly, this will be more to the right and anterior. She does appear to be symptomatic from this. If she wishes to have this repaired, we will proceed with a laparoscopic repair of the diaphragmatic hernia as well as a hiatal hernia simultaneously as well as an antireflux procedure if there are no contraindications. If she wants to proceed with this, we will get an esophageal manometry to rule out any esophageal dysmotility. She does have a healing pyloric ulcer and we will place her on a PPI acid antique furniture reproducer as well and await the biopsy results for potential H. pylori. Under the same anesthesia, we then proceeded with the colonoscopy portion of the procedure. A digital rectal examination was performed, which revealed mild chronic stage I external and internal hemorrhoids, not actively edematous nor inflamed and no bleeding. Normal sphincter tone was felt and there were no palpable masses. The endoscope was then intubated to the anus and rectum gently insufflated. The endoscope was then advanced to the valves of [place] in the rectum with no polyps or any neoplasms identified. The endoscope was then advanced to the sigmoid colon where no diverticulosis identified. We then proceeded through the remainder of the descending, transverse and ascending colon to the cecum. These segments were normal. There were no polyps or any neoplasms identified throughout the colon or rectum. The endoscope was then slowly withdrawn while taking a second look and suctioning of residual air with no additional findings. The patient tolerated this portion of the procedure well. We will recommend a high fiber diet with at least 25 grams of fiber per day as well as at least 64 fluid ounces of water to promote soft stools on a daily basis. She does not need another colonoscopy for another 10 years. Job ID: [id number] DocumentID: [id number] Dictated Date: 02/03/2018 12:01:42 Legal Specialist Date: 02/03/2018 14:36:11 Dictated By: WILMA ALMARAZ MD MTDD
== END 2018-02-03 13:00 | disposition home or self-care (01) ==
LOC: ENDO 09:44
PROVIDERS: ATTEND Surgery
DX: Z12.11 Encounter for screening for malignant neoplasm of colon (principal); K64.0 First degree hemorrhoids; K21.0 Gastro-esophageal reflux disease with esophagitis; K44.9 Diaphragmatic hernia without obstruction or gangrene; K29.70 Gastritis, unspecified, without bleeding; I10 Essential (primary) hypertension; Z87.891 Personal history of nicotine dependence; Z79.899 Other long term (current) drug therapy
CPT/HCPCS: 43239; G0121

== ENCOUNTER → 2019-04-01 | Outpatient (CLI) | payer MEDICARE, OTHER ==
[~2019-04-01] MED LIST changes: +PANT40TA2 PO
[2019-04-01 09:22] LABS: BASOPHILS % (AUTO) 0 % (0-10); EOSINOPHILS # (AUTO) 0.1 10^3/uL (0.0-0.3); EOSINOPHILS % (AUTO) 1 % (0-10); HEMATOCRIT 38 % (35-52); HEMOGLOBIN 12.4 G/DL (11.5-16.0); LYMPHOCYTES # (AUTO) 1.2 X 10^3 (1.0-4.0); LYMPHOCYTES % (AUTO) 26 % (12-44); MEAN CORPUSCULAR HEMOGLOBIN 29 PG (25-34); MEAN CORPUSCULAR HGB CONC 33 G/DL (32-36); MEAN CORPUSCULAR VOLUME 88 FL (80-99); MEAN PLATELET VOLUME 9.9 FL (7.4-10.4); MONOCYTES # (AUTO) 0.3 X 10^3 (0.0-1.0); MONOCYTES % (AUTO) 6 % (0-12); NEUTROPHILS % (AUTO) 67 % (42-75); PLATELET COUNT 259 10^3/uL (130-400); RED CELL DISTRIBUTION WIDTH 13.4 % (10.0-14.5); WHITE BLOOD COUNT 4.5 10^3/uL (4.3-11.0)
[2019-04-01 09:42] LABS: ALANINE AMINOTRANSFERASE 15 U/L (0-55); ALBUMIN 3.9 GM/DL (3.2-4.5); ALKALINE PHOSPHATASE 116 U/L (40-136); BILIRUBIN,TOTAL 0.7 MG/DL (0.1-1.0); BUN/CREATININE RATIO 16; CALCIUM 9.5 MG/DL (8.5-10.1); CARBON DIOXIDE 28 MMOL/L (21-32); CHLORIDE 108 MMOL/L (98-107); CHOLESTEROL 260 MG/DL (< 200); CREATININE SERUM 0.81 MG/DL (0.60-1.30); GFR ESTIMATED > 60; GLUCOSE 96 MG/DL (70-105); HDL CHOLESTEROL 57 MG/DL (40-60); POTASSIUM 5.1 MMOL/L (3.6-5.0); SODIUM 142 MMOL/L (135-145); TOTAL PROTEIN 7.1 GM/DL (6.4-8.2); TRIGLYCERIDES 156 MG/DL (<150); VLDL CHOLESTEROL 31 MG/DL (5-40)
--- NOTE | 2019-04-01 22:48 | Diagnostic Imaging Report ---
INDICATION: Routine screening. Comparison is made with prior mammogram 05/29/2017 and 04/30/2016. 2-D and 3-D bilateral screening mammography was performed. The current study was also evaluated with a Computer Aided Detection (CAD) system. 3-D Tomographic imaging was also performed. FINDINGS: Scattered fibroglandular densities are identified bilaterally. Tiny circumscribed nodules in upper-outer aspects of both breasts are noted consistent with intraparenchymal lymph nodes. No spiculated mass or malignant-appearing microcalcifications are seen. The axillae are unremarkable. IMPRESSION: No mammographic features suspicious for malignancy are identified. ACR BI-RADS Category 2: Benign findings. Result letter will be mailed to the patient. Note: At least 10% of breast cancer is not imaged by mammography. Dictated by: Dictated on workstation # [id number]
== END ==
LOC: RAD 09:07
PROVIDERS: ATTEND Family Medicine
DX: Z12.31 Encounter for screening mammogram for malignant neoplasm of breast (principal); E78.5 Hyperlipidemia, unspecified; I10 Essential (primary) hypertension
CPT/HCPCS: 36415; 77067; 80053; 80061; 85025

== ENCOUNTER 2019-06-28 05:58 | Observation (INO) | payer MEDICARE, OTHER ==
[~2019-06-28] VITALS: Ht 152.4 cm; Wt 69.4 kg
[2019-06-28 06:14] LABS: BASOPHILS % (AUTO) 0 % (0-10); EOSINOPHILS % (AUTO) 0 % (0-10); HEMATOCRIT 37 % (35-52); HEMOGLOBIN 12.1 G/DL (11.5-16.0); LYMPHOCYTES # (AUTO) 0.8 X 10^3 (1.0-4.0); LYMPHOCYTES % (AUTO) 10 % (12-44); MEAN CORPUSCULAR HEMOGLOBIN 29 PG (25-34); MEAN CORPUSCULAR HGB CONC 33 G/DL (32-36); MEAN CORPUSCULAR VOLUME 88 FL (80-99); MEAN PLATELET VOLUME 10.5 FL (7.4-10.4); MONOCYTES # (AUTO) 0.4 X 10^3 (0.0-1.0); MONOCYTES % (AUTO) 5 % (0-12); NEUTROPHILS # (AUTO) 7.3 X 10^3 (1.8-7.8); NEUTROPHILS % (AUTO) 86 % (42-75); PLATELET COUNT 227 10^3/uL (130-400); RED CELL DISTRIBUTION WIDTH 13.3 % (10.0-14.5); WHITE BLOOD COUNT 8.6 10^3/uL (4.3-11.0)
--- NOTE | 2019-06-28 06:18 | ED GI ---
General Chief Complaint: Rect Problems Stated Complaint: ABD PAIN RECTAL BLEEDING Source of Information: Patient, EMS History of Present Illness Date Seen by Provider: Jun 28, 2019 Time Seen by Provider: 06:00 Initial Comments 73-year-old female presents with abdominal pain and cramping that started last night. She reports she initially had some diarrhea then after a couple loose episodes she has some mucousy bloody stool. She reports that throughout the night she had a mucousy bloody stool about every 10-15 minutes. She did have a negative colonoscopy about a year ago. She denies any fevers or chills. She d enies any urinary symptoms. She did have a couple episodes of vomiting. Patient with no cough, chest pain or other systemic complaints Allergies and Home Medications Allergies Coded Allergies: ciprofloxacin (Unverified Allergy, Unknown, 01/13/18) hydrocodone (Verified Allergy, Unknown, PASSING OUT, 01/13/18) iodine (Unverified Allergy, Unknown, 01/13/18) Uncoded Allergies: STEROIDS (Adverse Reaction, Unknown, 01/13/18) Home Medications Lisinopril 10 Mg Tablet, 10 MG PO BID, (Reported) Turmeric Root Extract 538 Mg Capsule, 538 MG PO DAILY, (Reported) Patient Home Medication List Home Medication List Reviewed: Yes Review of Systems Review of Systems Constitutional: No chills, No fever Respiratory: Denies Cough, Denies Shortness of Air Cardiovascular: Denies Chest Pain, Denies Irregular Heart Rate Gastrointestinal: Abdominal Pain, Diarrhea, Nausea, Rectal Bleeding, Vomiting Genitourinary: See HPI Musculoskeletal: no symptoms reported Skin: no symptoms reported Psychiatric/Neurological: No Symptoms Reported Past Ftydhlh-Lefqwp-Ucqrue Hx Past Med/Social Hx: Reviewed Nursing Past Med/Soc Hx Patient Social History Type Used: Cigarettes Former Smoker, Quit: Jan 13, 2013 Recent Hopitalizations: No Immunizations Up To Date Tetanus Booster (TDap): More than 5yrs Date of Pneumonia Vaccine: Jan 13, 2013 Seasonal Allergies Seasonal Allergies: Yes Past Medical History Surgeries: Yes Adenoidectomy, Appendectomy, Hysterectomy, Tonsillectomy Respiratory: No Currently Using CPAP: No Currently Using BIPAP: No Cardiac: Yes Hypertension Neurological: No Reproductive Disorders: No Female 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 0.0oz. 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 as tested, alert, normal mood/affect, oriented x 3 Skin: normal color, warm/dry Progress/Results/Core Measures Results/Orders Lab Results Laboratory Tests Test 06/28/19 06:05 Range/Units White Blood Count 8.6 4.3-11.0 10^3/uL Red Blood Count 4.19 L 4.35-5.85 10^6/uL Hemoglobin 12.1 11.5-16.0 G/DL Hematocrit 37 35-52 % Mean Corpuscular Volume 88 80-99 FL Mean Corpuscular Hemoglobin 29 25-34 PG Mean Corpuscular Hemoglobin Concent 33 32-36 G/DL Red Cell Distribution Width 13.3 10.0-14.5 % Platelet Count 227 130-400 10^3/uL Mean Platelet Volume 10.5 H 7.4-10.4 FL Neutrophils (%) (Auto) 86 H 42-75 % Lymphocytes (%) (Auto) 10 L 12-44 % Monocytes (%) (Auto) 5 0-12 % Eosinophils (%) (Auto) 0 0-10 % Basophils (%) (Auto) 0 0-10 % Neutrophils # (Auto) 7.3 1.8-7.8 X 10^3 Lymphocytes # (Auto) 0.8 L 1.0-4.0 X 10^3 Monocytes # (Auto) 0.4 0.0-1.0 X 10^3 Eosinophils # (Auto) 0.0 0.0-0.3 10^3/uL Basophils # (Auto) 0.0 0.0-0.1 10^3/uL Prothrombin Time 13.6 12.2-14.7 SEC INR Comment 1.0 0.8-1.4 Activated Partial Thromboplast Time 23 L 24-35 SEC Sodium Level 142 135-145 MMOL/L Potassium Level 3.7 3.6-5.0 MMOL/L Chloride Level 110 H 98-107 MMOL/L Carbon Dioxide Level 21 21-32 MMOL/L Anion Gap 11 5-14 MMOL/L Blood Urea Nitrogen 10 7-18 MG/DL Creatinine 0.77 0.60-1.30 MG/DL Estimat Glomerular Filtration Rate > 60 BUN/Creatinine Ratio 13 Glucose Level 115 H 70-105 MG/DL Calcium Level 8.8 8.5-10.1 MG/DL Corrected Calcium 9.0 8.5-10.1 MG/DL Total Bilirubin 0.8 0.1-1.0 MG/DL Aspartate Amino Transf (AST/SGOT) 13 5-34 U/L Alanine Aminotransferase (ALT/SGPT) 13 0-55 U/L Alkaline Phosphatase 108 40-136 U/L Total Protein 6.6 6.4-8.2 GM/DL Albumin 3.8 3.2-4.5 GM/DL My Orders Orders - GANESH UDNNR L DO Cbc With Automated Diff (06/28/19 06:03) Comprehensive Metabolic Panel (06/28/19 06:03) Protime With Inr (06/28/19 06:03) Partial Thromboplastin Time (06/28/19 06:03) Acute Abd Series (06/28/19 06:03) Ondansetron Injection (Zofran Injectio (06/28/19 07:00) Fentanyl Injection (Sublimaze Injection (06/28/19 06:59) Ct Abdomen/Pelvis Wo (06/28/19 07:11) Ed Iv/Invasive Line Start (06/28/19 07:53) Ns Iv 1000 Ml (Sodium Chloride 0.9%) (06/28/19 07:53) Piperacillin Sodium/Tazobactam (Zosyn Vi (06/28/19 08:00) Lactic Acid Analyzer (06/28/19 07:57) Medications Given in ED Current Medications Medications Dose Ordered Sig/Kody Route Start Time Stop Time Status Last Admin Dose Admin Ondansetron HCl 4 mg ONCE ONCE IVP 06/28/19 07:00 06/28/19 07:01 DC 06/28/19 07:09 4 MG Vital Signs/I&O 06/28/19 06/28/19 05:58 07:12 Temp 36.8 36.8 Pulse 75 Resp 16 B/P (MAP) 187/92 (123) Pulse Ox 97 O2 Delivery Room Air Departure Communication (Admissions) Time/Spoke to Admitting Phy: 08:00 Review and a lactic acid, give her IV fluids and Zosyn and transferred to the floor in stable condition for further management Impression Primary Impression: Colitis Additional Impression: Bright red blood per rectum Disposition: ADMITTED INPATIENT Condition: Stable Admissions Decision to Admit Reason: Admit from ER (General) Decision to Admit/Date: Jun 28, 2019 Time/Decision to Admit Time: 08:00 Departure-Patient Inst. Referrals: RANDY HIGHTOWER MD (PCP/Family) Primary Care Physician SUKUMAR DUNN DO Jun 28, 2019 06:18 POS
[2019-06-28 06:28] LABS: PROTHROMBIN TIME PATIENT 13.6 SEC (12.2-14.7)
[2019-06-28 06:36] LABS: ALANINE AMINOTRANSFERASE 13 U/L (0-55); ALBUMIN 3.8 GM/DL (3.2-4.5); ALKALINE PHOSPHATASE 108 U/L (40-136); BILIRUBIN,TOTAL 0.8 MG/DL (0.1-1.0); BUN/CREATININE RATIO 13; CALCIUM 8.8 MG/DL (8.5-10.1); CARBON DIOXIDE 21 MMOL/L (21-32); CHLORIDE 110 MMOL/L (98-107); CREATININE SERUM 0.77 MG/DL (0.60-1.30); GFR ESTIMATED > 60; GLUCOSE 115 MG/DL (70-105); POTASSIUM 3.7 MMOL/L (3.6-5.0); SODIUM 142 MMOL/L (135-145); TOTAL PROTEIN 6.6 GM/DL (6.4-8.2)
--- NOTE | 2019-06-28 06:58 | Diagnostic Imaging Report ---
INDICATION: Abdominal pain, rectal bleeding, nausea and vomiting TECHNIQUE: Single view chest with supine and upright radiographs of the abdomen. CORRELATION STUDY: None FINDINGS: Frontal radiograph of the chest demonstrates no acute abnormality. A few gas-filled loops of bowel are present. This includes more focal bowel distention in the right mid abdomen. However, no findings to suggest high degree bowel obstruction. No differentiating air-fluid levels. IMPRESSION: 1. Negative for acute cardiopulmonary abnormality. 2. Nonspecific appearing bowel gas pattern. High degree obstruction however does not appear to be suggested. Dictated by: Dictated on workstation # [id number]
[2019-06-28] MEDS ORDERED: fentaNYL INJECTION 100 MCG/2 ML AMP IVP STA (06:59)
[2019-06-28] MEDS ORDERED: ONDANSETRON 4 MG/2 ML (SDV) Z0FRAN IVP ONE (07:00)
--- NOTE | 2019-06-28 07:39 | Diagnostic Imaging Report ---
PROCEDURE: CT abdomen and pelvis without contrast. TECHNIQUE: Multiple contiguous axial images were obtained through the abdomen and pelvis without the use of intravenous contrast. Auto Exposure Controls were utilized during the CT exam to meet ALARA standards for radiation dose reduction. INDICATION: Abdominal pain, rectal bleeding, nausea, and vomiting. CORRELATION STUDY: 12/22/2017. FINDINGS: Lung bases are clear of infiltrate. Right posterior medial diaphragmatic hernia with small amount of herniated fat present. Visualized heart size appearing normal. Unenhanced liver, spleen, pancreas, slightly contracted gallbladder, and adrenal glands are unremarkable. Kidneys are unremarkable without obstruction. There is moderate aortoiliac wall calcification, nonaneurysmal. Stomach and small bowel appearing unremarkable. Majority of the colon is relatively collapsed. There is however asymmetric colonic wall thickening and adjacent pericolonic haziness involving the distal transverse colon and majority of the descending colon into the sigmoid colon. A few distal colonic diverticula are present. No abdominal ascites or free air. Urinary bladder is unremarkable. The uterus is absent with hysterectomy changes. Mild rightward curvature of the lumbar spine. Asymmetric areas of disc space narrowing, most pronounced at L4-L5 level. IMPRESSION: 1. Findings suggestive of nonspecific colitis involving the predominantly descending segment of the colon. This could be inflammatory, infectious, or potentially ischemic in etiology. Dictated by: Dictated on workstation # [id number]
[2019-06-28] MEDS ORDERED: NS IV 1000 ML 1,000 ML IV SCH ×2 (07:53→10:30)
[2019-06-28] MEDS ORDERED: PIPERACILLIN SODIUM/TAZOBACTAM 4.5 GM in NS (IVPB) 100 ML IV ONE (08:00)
[2019-06-28] MEDS ORDERED: CATHETER FLUSH 10 ML SYR IV PRN (09:00)
[2019-06-28] MEDS ORDERED: ONDANSETRON 4 MG/2 ML (SDV) Z0FRAN IV PRN ×2 (09:00→16:30)
[2019-06-28 09:05] VITALS: BP 157/82
[2019-06-28] MEDS ORDERED: MULT1TAB69 PO (09:33)
[2019-06-28] MEDS ORDERED: CYAN-41 PO (09:33)
[2019-06-28] MEDS ORDERED: MULT1TAB60 PO (09:33)
--- NOTE | 2019-06-28 09:34 | NUR ---
SPOKE WITH THE PATIENT ABOUT HER MEDICATIONS. SHE HAD HER PILL HOSPICE CHAPLAIN WITH HER WITH TABLETS INSIDE IT. SHE HAS LISINOPRIL 10MG TABS IN THAT PILL HOSPICE CHAPLAIN. THE EXT MED HX SHOWS THE 10MG FILLED AT [facility] [place] , THERE IS A MORE RECENT ENTRY FOR 5MG BUT THE INFORMATION IS UNCLEAR IF IT IS SUPPLIED BY A PHARMACY. I ENTERED IT THE 10MG THAT PATIENT HAS TABLETS OF AND SHE STATES THAT IS THE CORRECT DOSE. SHE TAKES A CHEWABLE MTV, TURMERIC, AND B12 OTC HOWEVER ADMITS SHE DOES NOT TAKE THEM EVERYDAY.
[2019-06-28] MEDS: NS IV 1000 ML 1,000 ML IV SCH ×3 (10:09→20:36)
[2019-06-28 12:00] VITALS: BP 153/82
--- NOTE | 2019-06-28 14:39 | History & Physical-Hospitalist ---
[facility] 06/28/19 1439: History of Present Illness HPI/Chief Complaint Steff is a 73 y/o white female that presents with abdominal pain, diarrhea and blood in stool. The patient noticed around 9pm last night that her abdomen started to hurt really bad 10/10. She went to the bathroom and had a large amount of diarrhea. About 15 minutes later the patient had the abdominal pain return and then another episode of diarrhea occurred. She started to feel lightheaded and felt like she was going to pass out. After the second time of going to the bathroom the patients pain continued in a cyclic pattern every 15 mins but she did not have anymore diarrhea but now she had bright red blood coming out without stool. She began to feel Nauseas and vomited about 3-4 times around 11pm. She began vomiting up her cereal that was eaten at 6pm but then it turned into a yellow color. Her current pain at rest is a 4/10 and she feels it has improved since yesterday. She is still having blood coming from the rectum but she states it is more clot like. Source: patient Date Seen 06/28/19 Time Seen by a Provider: 14:28 Attending Physician Maykel Montoya MD PCP Maykel Montoya MD Referring Physician Date of Admission Jun 28, 2019 at 08:28 Home Medications & Allergies Home Medications Reviewed patient Home Medication Reconciliation performed by pharmacy medication reconciliations mail technician and/or nursing. Patients Allergies have been reviewed. Allergies Allergies Coded Allergies ciprofloxacin (Unverified Allergy, Unknown, rash, 06/28/19) hydrocodone (Verified Allergy, Unknown, PASSING OUT, 01/13/18) iodine (Unverified Allergy, Unknown, 01/13/18) Uncoded Allergies STEROIDS ( Adverse Reaction, Unknown, 01/13/18) Cipro causes a rash Steroids cause closing of the throat Past [place]-Ipicaj-Xywdmd Hx Past Med/Social Hx: Reviewed Nursing Past Med/Soc Hx Patient Social History Employed/Student: employed Alcohol Use: Denies Use Alcohol Beverage of Choice: Other (Drinks wine socially maybe 1-2 a month ) Recreational Drug Use: No Smoking Status: Former Smoker (quit six years ago ) Former Smoker, Quit: Jan 13, 2013 Type Used: Cigarettes 2nd Hand Smoke Exposure: Yes Recent Foreign Travel: No Contact w/other who traveled: No Recent Hopitalizations: No Recent Infectious Disease Expo: No Immunizations Up To Date Tetanus Booster (TDap): More than 5yrs Date of Pneumonia Vaccine: Jan 13, 2013 Seasonal Allergies Seasonal Allergies: Yes Past Medical History Surgeries: Adenoidectomy, Appendectomy, Hysterectomy, Tonsillectomy Currently Using CPAP: No Currently Using BIPAP: No Cardiac: Hypertension : No Reproductive: No Sexually Transmitted Disease: No HIV/AIDS: No Female Reproductive Disorders: Denies Hysterectomy, Menopausal Gastrointestinal: Colitis Musculoskeletal: Rheumatoid Arthritis Loss of Vision: Bilateral Hearing Impairment: Denies Psychosocial: Anxiety History of Blood Disorders: No Adverse Reaction to Blood Rogers: No (N/A) Patient stated she has a hx of colitis when she was younger. She also states that she has depression and anxiety but this is not formally dx and is not being treated for it. Family History Father (cancer unspecified) Mother ( Hx of lung disease andf heart disease) Review of Systems Constitutional: No chills; dizziness; No fever EENTM: no symptoms reported Respiratory: no symptoms reported Cardiovascular: no symptoms reported Gastrointestinal: abdominal pain (Has bilateral LQ pain), melena; No nausea, No vomiting; other (Pt is currently tolerating clear diet without issue ) Genitourinary: no symptoms reported Musculoskeletal: joint pain Skin: no symptoms reported Psychiatric/Neurological: Anxiety, Depressed Physical Exam Physical Exam Vital Signs Vital Signs - First Documented 06/28/19 05:58 Temp 36.8 Pulse 75 Resp 16 B/P (MAP) 187/92 (123) Pulse Ox 97 O2 Delivery Room Air Capillary Refill : Less Than 3 Seconds Height, Weight, BMI Height: 5'0.00" Weight: 157lbs. 0.0oz. 71.434965me; 29.79 BMI Method:Stated General Appearance: No Apparent Distress, WD/WN Eyes: Bilateral Eye PERRL, Bilateral Eye EOMI HEENT: PERRL/EOMI, Moist Mucous Membranes; No Photophobia Neck: Full Range of Motion, Non Tender, Supple Respiratory: Chest Non Tender, Lungs Clear, Normal Breath Sounds, No Accessory Muscle Use, No Respiratory Distress Cardiovascular: Regular Rate, Rhythm, No Edema, Normal Peripheral Pulses Gastrointestinal: Soft; No Distended, No Guarding; Tenderness (Tenderness to the RLQ and the LLQ ) Extremity: Normal Capillary Refill, No Calf Tenderness, No Pedal Edema Neurologic/Psychiatric: Alert, Oriented x3, No Motor/Sensory Deficits, sports team marketing intern II- XII Norm as Tested Skin: Normal Color, Warm/Dry Lymphatic: No Adenopathy Results Results/Procedures Labs Laboratory Tests 06/28/19 06:05 Patient resulted labs reviewed. Assessment/Plan Admission Diagnosis Blood in stool Assessment and Plan Lower GI Bleed Colitis Diverticulosis Peptic Ulcer HTN High Cholesterol Lower GI bleed - patient is currently hemodynamically stable and will recheck HgB tomorrow. Surgery has been consulted Colitis - IV fluids, - Abx with Zosyn - bowel rest (clear diet if patient can tolerate) - Stool sample and culture - General surgery consult Diverticulosis - due to bleeding will monitor patients CBC and wait for general surgeries to dictate how to proceed if bleeding continues - Increase fiber intake - increase water intake Peptic Ulcer - hx of ulcer, will consider protonix HTN - Continue home medications DVT prophylaxis - Mechanical only Clinical Quality Measures DVT/VTE Risk/Contraindication: Risk Factor Score Per Nursin RFS Level Per Nursing on Admit: 2=Moderate CONCEPCION SPENCER MD 06/29/19 1639: Assessment/Plan Admission Diagnosis Admission Status: Inpatient Order (span 2 midnights) Reason for Inpatient Admission: Admitted to inpatient for GI bleed. Monitor Hemoglobin. Surgery consultation for psosible surgical intervention if continues. Assessment and Plan Acute lower GI bleed. HDS and Hemoglobin WNL. Monitor in AM for drop or if bleeding worsens will recheck. May need colonoscopy if continue or even surgical intervention. Continue IV abx for colitis. Diagnosis/Problems Diagnosis/Problems (1) Bright red blood per rectum Status: Acute (2) Colitis Status: Acute Supervisory-Addendum Brief Verification & Attestation Participated in pt care: history, MDM, physical Personally performed: exam, history, MDM, supervision of care Care discussed with: Medical Student Procedures: n/a Results interpretation: Verified all documentation Verification and Attestation of Medical Student E/M Service A medical student performed and documented this service in my presence. I reviewed and verified all information documented by the medical student and made modifications to such information, when appropriate. I personally performed the physical exam and medical decision making. Concepcion Spencer, Jun 29, 2019,16:37 [facility] Jun 28, 2019 14:39 CONCEPCION HAINES MD Jun 29, 2019 16:39 POS
--- NOTE | 2019-06-28 15:36 | NUR ---
Initial visit. Pt goes by Shelley. Recounted the events of when she first had abdominal cramps and bleeding. States she awakened with pain at around 0100 and called an ambulance at 0500. Pt's mother lives in the duplex next door, and was present with the pt for support. She shared that she is currently grieving the of her dog which in November. Pt shared her source of strength is her michael in God and prayer, and her support includes her community and her mother. Offered prayer.
[2019-06-28 15:37] VITALS: BP 131/79
[2019-06-28] MEDS ORDERED: ANTACID SUSP 30 ML UDC (MYLANTA) PO PRN (16:30)
[2019-06-28] MEDS ORDERED: MELATONIN 3 MG TABLET PO PRN (16:30)
[2019-06-28] MEDS ORDERED: ACETAMINOPHEN 325 MG TABLET PO PRN (16:30)
[2019-06-28] MEDS ORDERED: MILK OF MAGNESIA 400 MG/5 ML 30 ML UDC PO PRN (16:30)
[2019-06-28 20:15] VITALS: BP 122/66
[2019-06-28] MEDS: DICYCLOMINE 10 MG (BENTYL) CAP PO PRN (20:36)
[2019-06-29 00:10] VITALS: BP 118/56
[2019-06-29 03:00] VITALS: BP 112/70
[2019-06-29 05:56] LABS: BASOPHILS % (AUTO) 0 % (0-10); EOSINOPHILS # (AUTO) 0.1 10^3/uL (0.0-0.3); EOSINOPHILS % (AUTO) 1 % (0-10); HEMATOCRIT 34 % (35-52); HEMOGLOBIN 10.9 G/DL (11.5-16.0); LYMPHOCYTES # (AUTO) 1.3 X 10^3 (1.0-4.0); LYMPHOCYTES % (AUTO) 19 % (12-44); MEAN CORPUSCULAR HEMOGLOBIN 29 PG (25-34); MEAN CORPUSCULAR HGB CONC 32 G/DL (32-36); MEAN CORPUSCULAR VOLUME 90 FL (80-99); MEAN PLATELET VOLUME 10.6 FL (7.4-10.4); MONOCYTES # (AUTO) 0.4 X 10^3 (0.0-1.0); MONOCYTES % (AUTO) 6 % (0-12); NEUTROPHILS % (AUTO) 73 % (42-75); PLATELET COUNT 201 10^3/uL (130-400); RED CELL DISTRIBUTION WIDTH 13.4 % (10.0-14.5); WHITE BLOOD COUNT 6.8 10^3/uL (4.3-11.0)
[2019-06-29] MEDS: NS IV 1000 ML 1,000 ML IV SCH (06:10)
[2019-06-29] MEDS: DICYCLOMINE 10 MG (BENTYL) CAP PO PRN (06:10)
[2019-06-29 06:17] LABS: ALANINE AMINOTRANSFERASE 6 U/L (0-55); ALBUMIN 3.3 GM/DL (3.2-4.5); ALKALINE PHOSPHATASE 92 U/L (40-136); BILIRUBIN,TOTAL 0.9 MG/DL (0.1-1.0); BUN/CREATININE RATIO 7; CALCIUM 8.2 MG/DL (8.5-10.1); CARBON DIOXIDE 21 MMOL/L (21-32); CHLORIDE 113 MMOL/L (98-107); CREATININE SERUM 0.76 MG/DL (0.60-1.30); GFR ESTIMATED > 60; GLUCOSE 101 MG/DL (70-105); POTASSIUM 3.7 MMOL/L (3.6-5.0); SODIUM 143 MMOL/L (135-145); TOTAL PROTEIN 5.7 GM/DL (6.4-8.2)
--- NOTE | 2019-06-29 07:37 | NUR ---
Dr. Arrington notified of consult placed by Dr. Spencer
[2019-06-29 08:00] VITALS: BP 107/70
[2019-06-29 12:00] VITALS: BP 130/61
--- NOTE | 2019-06-29 13:31 | Progress Note - Hospitalist ---
ISIDRO HYATT [facility] 06/29/19 1331: Subjective HPI/CC On Admission Date Seen by Provider: Jun 29, 2019 Time Seen by Provider: 08:30 Steff is a 73 y/o white female that presents with abdominal pain, diarrhea and blood in stool. The patient noticed around 9pm last night that her abdomen started to hurt really bad 10/10. She went to the bathroom and had a large amount of diarrhea. About 15 minutes later the patient had the abdominal pain return and then another episode of diarrhea occurred. She started to feel lightheaded and felt like she was going to pass out. After the second time of going to the bathroom the patients pain continued in a cyclic pattern every 15 mins but she did not have anymore diarrhea but now she had bright red blood coming out without stool. She began to feel Nauseas and vomited about 3-4 times around 11pm. She began vomiting up her cereal that was eaten at 6pm but then it turned into a yellow color. Her current pain at rest is a 4/10 and she feels it has improved since yesterday. She is still having blood coming from the rectum but she states it is more clot like. Subjective/Events-last exam Pt is alert and oriented and in no acute distress. No family at bedside. She states she is feeling better then yesterday She is still having abdominal pain but it has improved and the duration between abdominal spasms has increased. She has not had a bowel movement since admission but is still passing blood. The blood amount has decreased. Urinating without issue Tolerating her clear liquid diet Patient denies SOB, Chest pain, N/V and F/C Focused Exam Lactate Level 06/28/19 09:54: Lactic Acid Level 3.05*H 06/28/19 12:10: Lactic Acid Level 1.54 Objective Exam Vital Signs Vital Signs Date Time Temp Pulse Resp B/P (MAP) Pulse Ox O2 Delivery O2 Flow Rate FiO2 06/29/19 12:00 36.9 70 18 130/61 (84) 96 Room Air Capillary Refill : Less Than 3 Seconds General Appearance: No Apparent Distress, WD/WN HEENT: PERRL/EOMI, Normal ENT Inspection Neck: Full Range of Motion, Non Tender, Supple Respiratory: Chest Non Tender, Lungs Clear, Normal Breath Sounds, No Accessory Muscle Use, No Respiratory Distress Cardiovascular: Regular Rate, Rhythm, No Edema, No Murmur, Normal Peripheral Pulses Gastrointestinal: No Organomegaly, No Pulsatile Mass; No Distended, No Guarding (Tenderness has improved. Minimal in the RLQ); Tenderness Extremity: Normal Capillary Refill, Non Tender, No Calf Tenderness Neurologic/Psychiatric: Alert, Oriented x3, Normal Mood/Affect, fence manufacture supervisor II-XII Norm as Tested Skin: Normal Color, Warm/Dry Lymphatic: No Adenopathy Results/Procedures Lab Laboratory Tests 06/29/19 05:25 Patient resulted labs reviewed. Assessment/Plan Assessment and Plan Assess & Plan/Chief Complaint Lower GI Bleed Colitis Diverticulosis Peptic Ulcer HTN High Cholesterol Lower GI bleed - patient is currently hemodynamically stable and will recheck HgB tomorrow. Surgery has been consulted. Will continue Bentyl for abdominal cramps as the patient states it is helping. Colitis - IV fluids, - Abx with Zosyn - bowel rest (clear diet if patient can tolerate) - Stool sample and culture - General surgery consult Diverticulosis - due to bleeding will monitor patients CBC and wait for general surgeries to dictate how to proceed if bleeding continues - Educated patient to Increase fiber intake in the future - increase water intake Peptic Ulcer - Continue protonix HTN - Continue home medications DVT prophylaxis - Mechanical only Clinical Quality Measures DVT/VTE Risk/Contraindication: Risk Factor Score Per Nursin RFS Level Per Nursing on Admit: 2=Moderate CONCEPCION SPENCER MD 06/29/19 1634: Assessment/Plan Assessment and Plan Assess & Plan/Chief Complaint Bleeding slowing. Hemoglobin stable. Dr Arrington consulted, appreciate recs. Continue conservative management at this time. Supervisory-Addendum Brief Verification & Attestation Participated in pt care: history, MDM, physical Personally performed: exam, history, MDM, supervision of care Care discussed with: Medical Student Procedures: n/a Results interpretation: Verified all documentation Verification and Attestation of Medical Student E/M Service A medical student performed and documented this service in my presence. I reviewed and verified all information documented by the medical student and made modifications to such information, when appropriate. I personally performed the physical exam and medical decision making. Concepcion Spencer, Jun 29, 2019,16:32 ISIDRO HYATT Jun 29, 2019 13:31 CONCEPCION HAINES MD Jun 29, 2019 16:34 POS
--- NOTE | 2019-06-29 15:07 | CONSULTATION REPORT ---
DATE OF SERVICE: 06/29/2019 ADMITTING PHYSICIAN: Dr. Spencer. ATTENDING PRIMARY CARE PHYSICIAN: Maykel Montoya MD HISTORY OF PRESENT ILLNESS: The patient is a 73-year-old female, who presented with abdominal pain as well as loose stools as well as blood per rectum. She stated that around 9 p.m. last night, the pain was diffuse and significant. She went to the bathroom and had a large amount of loose stools and then 15 minutes later had noticed another episode of stool with blood. After that, she felt lightheaded. She does not report eating any different foods as well as no recent travel. She does not report any new drinking water sources. She also does have a history of rheumatoid arthritis, hypertension as well as a previous smoker for many years. Based on her symptomatology as well as CT scan findings, she does have a mild colitis, most likely ischemic colitis from low flow states. PAST MEDICAL HISTORY: Hypertension, rheumatoid arthritis, depression, anxiety. PAST SURGICAL HISTORY: Tonsillectomy, appendectomy, hysterectomy. ALLERGIES: CIPROFLOXACIN, HYDROCODONE, IODINE. MEDICATIONS: Lisinopril 10 mg daily, vitamin B12 daily SOCIAL HISTORY: Previous smoker, 50 pack years, quit in 2012. Social alcohol. FAMILY HISTORY: Father, unknown cancer. VITAL SIGNS: Temperature 36.9, blood pressure 130/81, pulse 70, respirations 18, pulse ox 96% on room air. REVIEW OF SYSTEMS: Well-nourished female, currently in no acute distress. She is not experiencing any shortness of breath or difficulty breathing. No chest pain, palpitations, diaphoresis. No nausea, vomiting. She has not had a bowel movement since the ones that she had the night previous. Minimal abdominal discomfort. No peritoneal signs. No fever, chills. No recent inadvertent weight loss. All other review of systems negative. PHYSICAL EXAMINATION: CHEST: Distant breath sounds and few scattered rales bilaterally. HEART: Regular, no murmurs. EXTREMITIES: No lower extremity edema, negative Homans sign. HEENT: No scleral icterus. NECK: No cervical lymphadenopathy. ABDOMEN: Soft, nondistended. There is mild discomfort upon deep palpation. No peritoneal signs. No palpable masses. SKIN: Warm, dry. LABORATORY DATA: WBC 6.8, hemoglobin 10.9, hematocrit 34, platelets 201. BUN 5, creatinine 0.76. ASSESSMENT AND PLAN: A 73-year-old female with signs and symptoms most likely consistent with ischemic colitis. RECOMMENDATIONS: At this time is to optimize her medical status with IV hydration and increased volume as well as a cardiac output. Most likely inciting event may have been related to viral etiology causing dehydration and low flow states resulting in the colitis of the descending colon. She is currently being medically managed with IV fluids and is tolerating clear liquid diet and has had majority of resolution of symptomatology. We will recommend continued medical management for now and advance diet as tolerated and she will need a followup colonoscopy and we will instruct her to call the office at any time and we will schedule her as an outpatient for colonoscopy. Job ID: [id number] DocumentID: [id number] Dictated Date: 06/29/2019 14:46:05 Supervisor [employer] Date: 06/29/2019 15:07:22 Dictated By: WILMA ALMARAZ MD MTDD
[2019-06-29 16:00] VITALS: BP 168/90
--- NOTE | 2019-06-29 18:13 | NUR ---
Dr. Spencer notified of BP 168/90. Home med Lisinopril started
[2019-06-29] MEDS: lisINopril 10 MG (PRINIVIL) TABLET PO SCH (18:18)
[2019-06-30 00:28] VITALS: BP 110/68
[2019-06-30 08:00] VITALS: BP 137/82
[2019-06-30] MEDS: lisINopril 10 MG (PRINIVIL) TABLET PO SCH (08:50)
[2019-06-30] MEDS: DICYCLOMINE 10 MG (BENTYL) CAP PO PRN (08:50)
--- NOTE | 2019-06-30 09:50 | Progress Note ---
Subjective Date Seen by a Provider: Jun 30, 2019 Time Seen by a Provider: 09:30 Subjective/Events-last exam Patient reports doing much better today, but still having some abdominal discomfort. No N/V. No Fever/chills. No BMs. Ambulating. Tolerating diet. Focused Exam Lactate Level 06/28/19 09:54: Lactic Acid Level 3.05*H 06/28/19 12:10: Lactic Acid Level 1.54 Objective Exam Vital Signs Date Time Temp Pulse Resp B/P (MAP) Pulse Ox O2 Delivery O2 Flow Rate FiO2 06/30/19 00:28 36.7 73 16 110/68 (82) 97 Room Air 06/29/19 20:00 Room Air 06/29/19 16:00 37.5 78 18 168/90 (116) 97 Room Air 06/29/19 12:00 36.9 70 18 130/61 (84) 96 Room Air I & O 06/30/19 07:00 Intake Total 4700 ml Output Total 3300 ml Balance 1400 ml Capillary Refill : Less Than 3 Seconds General Appearance: No Apparent Distress, WD/WN Neck: Full Range of Motion, Normal Inspection, Supple Respiratory: Normal Breath Sounds, No Accessory Muscle Use, No Respiratory Distress Cardiovascular: Regular Rate, Rhythm, No Murmur Gastrointestinal: soft, tenderness Extremity: Normal Capillary Refill, Normal Inspection, Non Tender Neurologic/Psychiatric: Alert, Oriented x3 Skin: Normal Color, Warm/Dry Assessment/Plan Assessment/Plan Assess & Plan/Chief Complaint A 73 year old female with descending colonic colitis. Continue with diet and ambulation. Pain meds prn. Will need to continue low residue diet at home for the next 4 weeks. May go home from surgery standpoint once ok with medical. Will need to follow up in our office in 2 weeks to schedule outpatient colonoscopy. Clinical Quality Measures DVT/VTE Risk/Contraindication: Risk Factor Score Per Nursin RFS Level Per Nursing on Admit: 2=Moderate JUAN ADAMSON BILLET HEATER Jun 30, 2019 09:50 POS
--- NOTE | 2019-06-30 10:48 | Discharge Inst-Simple/Standard ---
Discharge Inst-Standard Patient Instructions/Follow Up Plan of Care/Instructions/FU: Please continue to take your medications as written. Please follow up with Dr Arrington in 2 weeks. Activity as Tolerated: Yes Discharge Diet: Low Residue Return to The Hospital For: Bleeding, abdominal pain, no bowel movement for over 48 hours, if you feel you are getting worse. CONCEPCION MUNSON MD Jun 30, 2019 10:48 POS
[2019-06-30] MEDS ORDERED: DICY10CA12 PO (10:58)
--- NOTE | 2019-06-30 11:09 | Discharge Summary ---
ISIDRO HYATT [facility] 06/30/19 1109: Diagnosis/Chief Complaint Date of Admission Jun 28, 2019 at 08:28 Date of Discharge Discharge Date: Jun 30, 2019 Discharge Time: 10:59 Admission Diagnosis Lower GI Bleed Primary Care Randy Montoya MD Discharge Diagnosis (1) Bright red blood per rectum Status: Acute (2) Colitis Status: Acute Discharge Summary Discharge Physical Exam Allergies: Coded Allergies: ciprofloxacin (Unverified Allergy, Unknown, rash, 06/28/19) hydrocodone (Verified Allergy, Unknown, PASSING OUT, 01/13/18) iodine (Unverified Allergy, Unknown, 01/13/18) Uncoded Allergies: STEROIDS (Adverse Reaction, Unknown, 01/13/18) Vitals & I&Os Vital Signs Date Time Temp Pulse Resp B/P (MAP) Pulse Ox O2 Delivery O2 Flow Rate FiO2 06/30/19 08:00 36.0 70 18 137/82 (100) 95 Room Air General Appearance: No Apparent Distress, WD/WN HEENT: PERRL/EOMI, Moist Mucous Membranes Respiratory: Chest Non Tender, Lungs Clear, Normal Breath Sounds, No Accessory Muscle Use, No Respiratory Distress Cardiovascular: Regular Rate, Rhythm, No Edema, Normal Peripheral Pulses Gastrointestinal: No Organomegaly; No Distended, No Guarding; Tenderness (Minor tenderness only on palpation to RUQ and RLQ ) Extremity: Normal Capillary Refill, No Calf Tenderness, No Pedal Edema Skin: Normal Color, Warm/Dry Neurologic/Psychiatric: Alert, Oriented x3, senior painter II-XII Norm as Tested Hospital Course Was the Problem List Reviewed?: Yes Steff was admitted to via [facility] 06/28/19 and is being discharged today 06/30/19. She was admitted for a Lower GI Bleed . She has a PMH of HTN, Colitis, PUD and RA. She was under the care of Dr. Spencer Hospitalist. Dr. Arrington general surgery was consulted. Imaging included an abdominal series showing no bowel obstruction and a CT of the Abdomen and pelvis that showed non-specific colitis. Pertinent lab findings included a lactic acid of 3.05. Exam findings included severe abdominal pain, tenderness upon palpation and bright red blood per rectum. The patient complained of contraction like pains. The patient was treated conservatively with Antibiotics, IV Fluids and put on a clear liquid diet. The blood per rectum was monitored and spasmodic pains were treated with Bentyl. With aforementioned course of treatment the patient has improved abdominal pain and tenderness, her blood per rectum resolved and she is no longer having abdominal contraction pains. lactic acid levels have normalized. She is tolerating her low residue diet and is comfortable with being discharged. The patient will be discharged today in stable condition and she will have instructions in discharge papers to followup with Dr. Arrington for colonoscopy. She will also have all medications and dietary restrictions outlined in her discharge instructions. The following information is only a summary of the patients admission at [facility] and is not all inclusive. Please review entire chart for more information. Labs (last 24 hrs) Patient resulted labs reviewed. Discharge Home Medications: Active Scripts Active Dicyclomine HCl 10 Mg Capsule 10 Mg PO ACHS PRN Reported Vitamin B-12 (Cyanocobalamin (Vitamin B-12)) 1,000 Mcg Tablet 1,000 Mcg PO DAILY Chewable-Mariya (Multivitamin) 1 Each Tab.chew 1 Tab.chew PO DAILY Turmeric (Turmeric Root Extract) 538 Mg Capsule 538 Mg PO HS Lisinopril 10 Mg Tablet 10 Mg PO BID Instructions to patient/family Please see electronic discharge instructions given to patient. Clinical Quality Measures DVT/VTE Risk/Contraindication: Risk Factor Score Per Nursin RFS Level Per Nursing on Admit: 2=Moderate Copy Copies To 1: RANDY MONTOYA MD, KATELYN M MD 06/30/19 1139: Discharge Summary Discharge Physical Exam Allergies: Coded Allergies: ciprofloxacin (Unverified Allergy, Unknown, rash, 06/28/19) hydrocodone (Verified Allergy, Unknown, PASSING OUT, 01/13/18) iodine (Unverified Allergy, Unknown, 01/13/18) Uncoded Allergies: STEROIDS (Adverse Reaction, Unknown, 01/13/18) Discussion & Recommendations Discharge Planning: >30 minutes discharge planning Copy Copies To 1: RANDY MONTOYA MD Supervisory-Addendum Brief Verification & Attestation Participated in pt care: history, MDM, physical Personally performed: exam, history, MDM, supervision of care Care discussed with: Medical Student Procedures: n/a Results interpretation: Verified all documentation Verification and Attestation of Medical Student E/M Service A medical student performed and documented this service in my presence. I reviewed and verified all information documented by the medical student and made modifications to such information, when appropriate. I personally performed the physical exam and medical decision making. Concepcion Spencer, Jun 30, 2019,11:39 ISIDRO HYATT [facility] Jun 30, 2019 11:09 CONCEPCION AHINES MD Jun 30, 2019 11:39 POS
[2019-06-30 11:54] VITALS: BP 137/82
--- NOTE | 2019-06-30 11:59 | NUR ---
CHANDAN JOLLEY demonstrates understanding of discharge instructions and accurately returns instructions upon questioning. Copy of Post-Discharge Instructions and Medication Discharge Instructions given to pt. CHANDAN JOLLEY is able to manage continuing needs after discharge. Patients belongings returned to pt/family. Skin dry and intact; no breakdown noted. Patient discharged from [facility] on 06/30/19 at 1158. CHANDAN JOLLEY left floor via WC, accompanied by staff/family.
== END 2019-06-30 10:58 | disposition home or self-care (01) ==
LOC: EDUNIT# 05:59 → ER 06:00 → 4TH 08:28 → UNDOADMOB 08:28 → 4TH 09:00 → UNDODISOB 06-30 11:58
PROVIDERS: ADMIT Family Medicine; ATTEND Family Medicine
DX: K62.5 Hemorrhage of anus and rectum (principal); K52.9 Noninfective gastroenteritis and colitis, unspecified; K57.90 Diverticulosis of intestine, part unspecified, without perforation or abscess without bleeding; I10 Essential (primary) hypertension; E78.5 Hyperlipidemia, unspecified; K27.9 Peptic ulcer, site unspecified, unspecified as acute or chronic, without hemorrhage or perforation; M06.9 Rheumatoid arthritis, unspecified; F41.9 Anxiety disorder, unspecified; Z87.891 Personal history of nicotine dependence; Z88.1 Allergy status to other antibiotic agents; Z88.8 Allergy status to other drugs, medicaments and biological substances; Z88.5 Allergy status to narcotic agent; Z79.899 Other long term (current) drug therapy; Z90.89 Acquired absence of other organs
CPT/HCPCS: 36415; 74022; 74176; 80053; 82274; 83605; 85025; 85610; 85730; 86850; 86900; 86901; 96374; 96375; G0378

== ENCOUNTER → 2020-04-20 | Outpatient (CLI) | payer MEDICARE, OTHER ==
[~2020-04-20] MED LIST changes: +CYAN-41 PO; +DICY10CA12 PO; +MULT-567 PO; +MULT1TAB60 PO
--- NOTE | 2020-04-23 13:42 | Diagnostic Imaging Report ---
EXAMINATION: Digital mammogram bilateral screening with CAD. INDICATION: Screening. COMPARISON: This study was compared to the prior exams of 04/01/2019, 05/29/2017, and 04/30/2016. PERSONAL HISTORY: At this time, there are no current complaints. FINDINGS: There are scattered fibroglandular densities in both breasts which could obscure a lesion. Overall, there does not appear to have been any significant change when compared to the prior exam. No primary or secondary sign of malignancy is noted. IMPRESSION: There is no radiographic evidence for malignancy. ACR BI-RADS Category 1: Negative. Result letter will be mailed to the patient. Note: At least 10% of breast cancer is not imaged by mammography. Dictated by: Dictated on workstation # [id number]
== END ==
LOC: RAD 10:15
PROVIDERS: ATTEND Nurse Practitioner Family
DX: Z12.31 Encounter for screening mammogram for malignant neoplasm of breast (principal)
CPT/HCPCS: 77063; 77067

== ENCOUNTER 2021-05-10 15:21 | Emergency (ER) | payer MEDICARE, OTHER ==
[~2021-05-10] VITALS: Ht 152 cm; Wt 71.6 kg
[~2021-05-10 15:21] MED LIST changes: -LISI10TA2 PO; +LISI10TA25 PO
[2021-05-10] MEDS ORDERED: ONDANSETRON 4 MG/2 ML (SDV) Z0FRAN IVP ONE (15:45)
[2021-05-10] MEDS ORDERED: NS IV 1000 ML 1,000 ML IV SCH (15:45)
--- NOTE | 2021-05-10 15:45 | ED GI ---
General Stated Complaint: HX GI BLEED/LOW HEMOGLOBIN Source of Information: Patient History of Present Illness Date Seen by Provider: May 10, 2021 Time Seen by Provider: 15:35 Initial Comments PT ARRIVES VIA POV FROM [facility] STATES AROUND 1530 YESTERDAY AFTERNOON, SHE HAD A SUDDEN ONSET OF EXCRUCIATING LOWER ABDOMINAL PAIN, FOLLOWED BY BLOODY DIARRHEA STATES SHE HAS NOT HAD ANY BLOODY DIARRHEA SINCE YESTERDAY CONTINUES TO HAVE INTERMITTENT LOWER ABDOMINAL PAIN TODAY NO FEVER HAS HAD MILD NAUSEA C/O GENERALIZED WEAKNESS TODAY C/O DECREASED APPETITE TODAY--HAD SOFT BOILED EGG AND TOAST THIS AM, HAS BEEN DRINKING WATER AND TEA ALL DAY TODAY VOIDING A NORMAL AMOUNT HGB WAS [address] [facility] TODAY PT IS NOT ON ASPIRIN OR BLOOD THINNER PT IS NOT ON ANY GI MEDICATIONS PT HAD THIS SAME PROBLEM ABOUT 2 YEARS AGO--2019--WAS DX WITH COLITIS BUT DID NOT HAVE ANY COLONOSCOPY OR EGD AT ANY TIME AFTER THAT HAD COLONOSCOPY IN 2018 PT STATES SHE HAD COVID-19 IN AUGUST OF THIS YEAR PT HAS NOT RECEIVED THE COVID-19 VACCINE PCP: [facility] Allergies and Home Medications Allergies Coded Allergies: ciprofloxacin (Unverified Allergy, Unknown, rash, 06/28/19) hydrocodone (Verified Allergy, Unknown, PASSING OUT, 01/13/18) iodine (Unverified Allergy, Unknown, 01/13/18) Uncoded Allergies: STEROIDS (Adverse Reaction, Unknown, 01/13/18) Patient Home Medication List Home Medication List Reviewed: Yes Cyanocobalamin (Vitamin B-12) (Vitamin B-12) 1,000 Mcg Tablet, 1,000 MCG PO DAILY, (Reported) Entered as Reported by: HA FARLEY on 06/28/19 0933 Dicyclomine HCl (Dicyclomine HCl) 10 Mg Capsule, 10 MG PO ACHS PRN for stomach cramping Prescribed by: CONCEPCION MUNSON on 06/30/19 1058 Dicyclomine HCl (Dicyclomine HCl) 10 Mg Capsule, 10 MG PO QID Prescribed by: KENDRA PATIÑO on 05/10/21 1657 Lisinopril (Lisinopril) 10 Mg Tablet, 10 MG PO BID, (Reported) Entered as Reported by: CYRUS ROACH on 01/13/18 1154 Multivitamin (Chewable-Mariya) 1 Each Tab.chew, 1 TAB.CHEW PO DAILY, (Reported) Entered as Reported by: HA FARLEY on 06/28/19 0933 Ondansetron (Ondansetron Odt) 4 Mg Tab.rapdis, 4 MG PO Q4H Prescribed by: KENDRA PATIÑO on 05/10/21 165 Pantoprazole Sodium (Protonix) 40 Mg Tablet.dr, 40 MG PO DAILY Prescribed by: KENDRA PATIÑO on 05/10/21 165 Turmeric Root Extract (Turmeric) 538 Mg Capsule, 538 MG PO HS, (Reported) Entered as Reported by: CYRUS ROACH on 01/13/18 1154 Review of Systems Review of Systems Constitutional: see HPI, weakness EENTM: No Symptoms Reported Respiratory: No Symptoms Reported Cardiovascular: No Symptoms Reported Gastrointestinal: See HPI, Abdomen Distended, Abdominal Pain, Diarrhea, Nausea, Poor Appetite, Rectal Bleeding; Denies Vomiting Genitourinary: No Symptoms Reported Musculoskeletal: no symptoms reported Skin: no symptoms reported Psychiatric/Neurological: No Symptoms Reported Endocrine: No Symptoms Reported Hematologic/Lymphatic: See HPI; Denies Blood Clots, Denies Easy Bleeding, Denies Easy Bruising Past Fzeivyw-Evqwgf-Etasvb Hx Patient Social History Tobacco Use?: No Substance use?: No Alcohol Use?: No Immunizations Up To Date Tetanus Booster (TDap): More than 5yrs Seasonal Allergies Seasonal Allergies: Yes Past Medical History Surgery/Hospitalization HX: HYSTERECTOMY/OVARIES INTACT --HAD APPENDECTOMY AT SAME TIME EGD AND COLONOSCOPY 01/[address] 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[employer] History: Hysterectomy, Menopausal Sexually Transmitted Disease: No HIV/AIDS: No Genitourinary: No Gastrointestinal: Yes Colitis, Ulcer Musculoskeletal: Yes Rheumatoid Arthritis Endocrine: No HEENT: No Loss of Vision: Bilateral Hearing Impairment: Denies Cancer: No Psychosocial: Yes Anxiety Integumentary: No Blood Disorders: No Adverse Reaction/Blood Tranf: No (N/A) Family Medical History Father (cancer unspecified) Mother ( Hx of lung disease andf heart disease) Physical Exam Vital Signs Vital Signs - First Documented 05/10/21 15:36 Temp 36.3 Pulse 76 Resp 18 B/P (MAP) 191/78 (115) Pulse Ox 98 Capillary Refill : Height/Weight/BMI Height: 5'0.00" Weight: 157lbs. 0.0oz. 71.046205xs; 29.79 BMI Method:Stated General Appearance: WD/WN, no apparent distress, other (ANXIOUS) HEENT: No pale conjunctivae (R), No pale conjunctivae (L) Neck: normal inspection Respiratory: normal breath sounds, no respiratory distress, no accessory muscle use Cardiovascular: regular rate, rhythm, no murmur Gastrointestinal: no pulsatile mass, abnormal bowel sounds (HIGH-PITCHED, HYPERACTIVE), distended; No guarding, No rebound; tenderness (DIFFUSE LOWER ABDOMINAL TENDERNESS); No hernia, No mass Extremities: normal inspection, normal capillary refill Back: no CVA tenderness Neurologic/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: 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 as tested, no motor/sensory deficits, alert, oriented x 3 Skin: normal color, warm/dry Progress/Results/Core Measures Results/Orders Lab Results Laboratory Tests Test 05/10/21 15:40 05/10/21 15:43 Range/Units White Blood Count 6.5 4.3-11.0 10^3/uL Red Blood Count 4.21 3.80-5.11 10^6/uL Hemoglobin 12.4 11.5-16.0 g/dL Hematocrit 38 35-52 % Mean Corpuscular Volume 90 80-99 fL Mean Corpuscular Hemoglobin 30 25-34 pg Mean Corpuscular Hemoglobin Concent 33 32-36 g/dL Red Cell Distribution Width 12.9 10.0-14.5 % Platelet Count 247 130-400 10^3/uL Mean Platelet Volume 10.4 9.0-12.2 fL Immature Granulocyte % (Auto) 0 % Neutrophils (%) (Auto) 65 42-75 % Lymphocytes (%) (Auto) 27 12-44 % Monocytes (%) (Auto) 6 0-12 % Eosinophils (%) (Auto) 1 0-10 % Basophils (%) (Auto) 1 0-10 % Neutrophils # (Auto) 4.2 1.8-7.8 10^3/uL Lymphocytes # (Auto) 1.8 1.0-4.0 10^3/uL Monocytes # (Auto) 0.4 0.0-1.0 10^3/uL Eosinophils # (Auto) 0.1 0.0-0.3 10^3/uL Basophils # (Auto) 0.0 0.0-0.1 10^3/uL Immature Granulocyte # (Auto) 0.0 0.0-0.1 10^3/uL Sodium Level 139 135-145 MMOL/L Potassium Level 3.9 3.6-5.0 MMOL/L Chloride Level 105 98-107 MMOL/L Carbon Dioxide Level 23 21-32 MMOL/L Anion Gap 11 5-14 MMOL/L Blood Urea Nitrogen 13 7-18 MG/DL Creatinine 0.83 0.60-1.30 MG/DL Estimat Glomerular Filtration Rate 67 BUN/Creatinine Ratio 16 Glucose Level 98 70-105 MG/DL Calcium Level 9.5 8.5-10.1 MG/DL Corrected Calcium 9.4 8.5-10.1 MG/DL Magnesium Level 2.1 1.6-2.4 MG/DL Total Bilirubin 0.5 0.1-1.0 MG/DL Aspartate Amino Transf (AST/SGOT) 15 5-34 U/L Alanine Aminotransferase (ALT/SGPT) 13 0-55 U/L Alkaline Phosphatase 100 40-136 U/L Total Protein 7.4 6.4-8.2 GM/DL Albumin 4.1 3.2-4.5 GM/DL Amylase Level 51 25-125 U/L Lipase 25 8-78 U/L Urine Color YELLOW Urine Clarity CLEAR Urine pH 6.0 5-9 Urine Specific [place] 1.015 L 1.016-1.022 Urine Protein NEGATIVE NEGATIVE Urine Glucose (UA) NEGATIVE NEGATIVE Urine Ketones NEGATIVE NEGATIVE Urine Nitrite NEGATIVE NEGATIVE Urine Bilirubin NEGATIVE NEGATIVE Urine Urobilinogen 0.2 < = 1.0 MG/DL Urine Leukocyte Esterase 1+ H NEGATIVE Urine RBC (Auto) TRACE-I H NEGATIVE Urine RBC NONE /HPF Urine WBC 10-25 H /HPF Urine Squamous Epithelial Cells 2-5 /HPF Urine Crystals NONE /LPF Urine Bacteria TRACE /HPF Urine Casts NONE /LPF Urine Mucus NEGATIVE /LPF Urine Culture Indicated YES My Orders Orders - KENDRA PATIÑO DO Ed Iv/Invasive Line Start (05/10/21 15:38) Monitor-Rhythm Ecg Trace Only (05/10/21 15:38) Amylase (05/10/21 15:38) Cbc With Automated Diff (05/10/21 15:38) Comprehensive Metabolic Panel (05/10/21 15:38) Lipase (05/10/21 15:38) Magnesium (05/10/21 15:38) Ua Culture If Indicated (05/10/21 15:38) Ed Iv/Invasive Line Start (05/10/21 15:38) Ns Iv 1000 Ml (Sodium Chloride 0.9%) (05/10/21 15:45) Ondansetron Injection (Zofran Injectio (05/10/21 15:45) Urine Culture (05/10/21 15:43) Ct Abdomen/Pelvis Wo (05/10/21 15:38) Vital Signs/I&O 05/10/21 15:36 Temp 36.3 Pulse 76 Resp 18 B/P (MAP) 191/78 (115) Pulse Ox 98 Progress Progress Note : Progress Note GIVEN IV FLUIDS AND ZOFRAN PT DECLINES PAIN MEDICATION--RATES PAIN 08/05 UNEVENTFUL ER STAY NO COMPLAINTS OF PAIN AND NO STOOLS DURING ER STAY VITALS STABLE Diagnostic Imaging Comments CT ABDOMEN/PELVIS--PER RADIOLOGIST REPORT AT 1645 FINDINGS: Stable nodules seen in the right lung base. There is no pleural effusion. Diaphragmatic hernia is seen in the medial right lung base and is stable. The gallbladder, solid organs, vascular structures, and bowel are unremarkable. There is no free air or free fluid. There is no inflammation. The appendix and uterus are surgically absent. The urinary bladder is unremarkable. Osseous structures are age appropriate. IMPRESSION: 1. No acute abnormalities within the abdomen and pelvis. 2. Not mentioned above, atherosclerosis of the abdominal aorta without aneurysm. 3. Surgically absent uterus and appendix. Reviewed: Reviewed by Dc Departure Communication (Admissions) 1646--SPOKE WITH DR. ALMARAZ, HE WILL SEE IN OFFICE ON THURSDAY. Impression Primary Impression: Abdominal pain Additional Impression: Lower GI bleeding Disposition: HOME, SELF-CARE Condition: Improved Departure-Patient Inst. Decision time for Depature: 16:45 Referrals: [facility] (PCP/Family) Primary Care Physician WILMA ALMARAZ MD Patient Instructions: Bloody Stools, Adult ED, Severe Abdominal Pain, Adult (DC) Add. Discharge Instructions: CLEAR LIQUIDS--WATER, BROTH, JELLO, GATORADE BRATS DIET--BANANAS, RICE, APPLESAUCE, TOAST, SALTINES FOLLOW UP WITH DR. ALMARAZ ON THURSDAY FOR FURTHER CARE--CALL ON THURSDAY MORNING TO SCHEDULE APPOINTMENT Scripts Dicyclomine HCl (Dicyclomine HCl) 10 Mg Capsule 10 MG PO QID, #30 CAP Prov: KENDRA PATIÑO DO 05/10/21 Pantoprazole Sodium (Protonix) 40 Mg Tablet.dr 40 MG PO DAILY, #15 TAB Prov: KENDRA PATIÑO DO 05/10/21 Ondansetron (Ondansetron Odt) 4 Mg Tab.rapdis 4 MG PO Q4H for Nausea/Vomiting, #10 TAB Prov: KENDRA PATIÑO DO 05/10/21 KENDRA PATIÑO DO May 10, 2021 15:45
[2021-05-10 15:51] LABS: BASOPHILS % (AUTO) 1 % (0-10); EOSINOPHILS # (AUTO) 0.1 10^3/uL (0.0-0.3); EOSINOPHILS % (AUTO) 1 % (0-10); HEMATOCRIT 38 % (35-52); HEMOGLOBIN 12.4 g/dL (11.5-16.0); LYMPHOCYTES # (AUTO) 1.8 10^3/uL (1.0-4.0); LYMPHOCYTES % (AUTO) 27 % (12-44); MEAN CORPUSCULAR HEMOGLOBIN 30 pg (25-34); MEAN CORPUSCULAR HGB CONC 33 g/dL (32-36); MEAN CORPUSCULAR VOLUME 90 fL (80-99); MEAN PLATELET VOLUME 10.4 fL (9.0-12.2); MONOCYTES # (AUTO) 0.4 10^3/uL (0.0-1.0); MONOCYTES % (AUTO) 6 % (0-12); NEUTROPHILS # (AUTO) 4.2 10^3/uL (1.8-7.8); NEUTROPHILS % (AUTO) 65 % (42-75); PLATELET COUNT 247 10^3/uL (130-400); WHITE BLOOD COUNT 6.5 10^3/uL (4.3-11.0)
[2021-05-10 15:52] LABS: BILIRUBIN,URINE NEGATIVE (NEGATIVE); CLARITY,URINE CLEAR; COLOR,URINE YELLOW; GLUCOSE, URINE (UA) NEGATIVE (NEGATIVE); KETONES,URINE NEGATIVE (NEGATIVE); LEUKOCYTE ESTERASE ,URINE 1+ (NEGATIVE); NITRITE,URINE NEGATIVE (NEGATIVE); PROTEIN,URINE NEGATIVE (NEGATIVE)
[2021-05-10 16:02] LABS: BACTERIA,URINE TRACE /HPF
[2021-05-10 16:07] LABS: ALBUMIN 4.1 GM/DL (3.2-4.5); POTASSIUM 3.9 MMOL/L (3.6-5.0)
[2021-05-10 16:08] LABS: CALCIUM 9.5 MG/DL (8.5-10.1)
[2021-05-10 16:09] LABS: TOTAL PROTEIN 7.4 GM/DL (6.4-8.2)
[2021-05-10 16:11] LABS: BILIRUBIN,TOTAL 0.5 MG/DL (0.1-1.0)
[2021-05-10 16:13] LABS: CREATININE SERUM 0.83 MG/DL (0.60-1.30)
[2021-05-10 16:16] LABS: MAGNESIUM 2.1 MG/DL (1.6-2.4)
--- NOTE | 2021-05-10 16:37 | Diagnostic Imaging Report ---
PROCEDURE: CT abdomen and pelvis without contrast. TECHNIQUE: Multiple contiguous axial images were obtained through the abdomen and pelvis without the use of intravenous contrast. Auto Exposure Controls were utilized during the CT exam to meet ALARA standards for radiation dose reduction. INDICATION: Abdominal pain and bloody stools. COMPARISON: 06/28/2019. FINDINGS: Stable nodules seen in the right lung base. There is no pleural effusion. Diaphragmatic hernia is seen in the medial right lung base and is stable. The gallbladder, solid organs, vascular structures, and bowel are unremarkable. There is no free air or free fluid. There is no inflammation. The appendix and uterus are surgically absent. The urinary bladder is unremarkable. Osseous structures are age appropriate. IMPRESSION: 1. No acute abnormalities within the abdomen and pelvis. 2. Not mentioned above, atherosclerosis of the abdominal aorta without aneurysm. 3. Surgically absent uterus and appendix. Dictated by: Dictated on workstation # [id number]
[2021-05-10] MEDS ORDERED: DICY10CA12 PO (16:57)
[2021-05-10] MEDS ORDERED: ONDA4TAB11 PO (16:57)
[2021-05-10] MEDS ORDERED: PANT40TA2 PO (16:57)
[2021-05-10 17:20] VITALS: BP 175/98
== END 2021-05-10 17:20 | disposition home or self-care (01) ==
LOC: EDUNIT# 15:21 → ER 15:23
DX: K92.2 Gastrointestinal hemorrhage, unspecified (principal); I10 Essential (primary) hypertension
CPT/HCPCS: 36415; 74176; 80053; 81000; 82150; 83690; 83735; 85025; 87088; 93041

== ENCOUNTER 2021-07-17 05:31 | Outpatient (CLI) | payer MEDICARE, OTHER ==
[~2021-07-17] VITALS: Ht 152.4 cm; Wt 79.0 kg
[~2021-07-17 05:31] MED LIST changes: +ONDA4TAB11 PO
[2021-07-18] MEDS ORDERED: MV-M1TAB20 PO (09:09)
[2021-07-18] MEDS ORDERED: MULT-974 PO (09:09)
== END 2021-07-18 09:33 | disposition home or self-care (01) ==
LOC: PREOP 05:31
PROVIDERS: ATTEND Surgery
DX: Z01.818 Encounter for other preprocedural examination (principal)

== ENCOUNTER 2021-07-24 08:00 | Day surgery (SDC) | payer MEDICARE, OTHER ==
[~2021-07-24] VITALS: Ht 152 cm; Wt 79.0 kg
[2021-07-24] VITALS (11 sets, daily range): BP systolic 121–183; BP diastolic 55–93
[~2021-07-24 08:00] MED LIST changes: +MULT-974 PO; +MV-M1TAB20 PO
[2021-07-24] MEDS ORDERED: LACTATED RINGERS 1,000 ML IV PRN (08:15)
[2021-07-24] MEDS ORDERED: ceFAZolin 2 GM IV Premixed 50 ML IV ONE (08:15)
--- NOTE | 2021-07-24 08:22 | Progress Note-Pre Operative ---
Pre-Operative Progress Note H&P Reviewed The H&P was reviewed, patient examined and no changes noted. Time Seen by Provider: 08:19 Date H&P Reviewed: Jul 24, 2021 Time H&P Reviewed: 08:19 Pre-Operative Diagnosis: Cholelithiasis/Cholecystitis YASMIN RAMIREZ DO Jul 24, 2021 08:22
[2021-07-24] MEDS ORDERED: LIDOCAINE/EPI 1%-1:200,000 (XYLOCAINE) 30 ML VIAL ONE (08:53)
[2021-07-24] MEDS ORDERED: ONDANSETRON 4 MG/2 ML (SDV) Z0FRAN ONE (10:01)
[2021-07-24] MEDS ORDERED: proPOfol 200 MG/20 ML (DIPRIVAN) VIAL IV ONE (10:01)
[2021-07-24] MEDS ORDERED: fentaNYL INJ 100 MCG/2 ML AMP ONE (10:01)
[2021-07-24] MEDS ORDERED: LIDOCAINE PF 2% 5 ML (XYLOCAINE) VIAL ONE (10:01)
[2021-07-24] MEDS ORDERED: MIDAZOLAM 2 MG/2 ML (VERSED) VIAL ONE (10:01)
[2021-07-24] MEDS ORDERED: ROCURONIUM 10 MG/ML 5 ML SYRINGE IV ONE (10:01)
[2021-07-24] MEDS ORDERED: SUGAMMADEX 500 MG/5 ML VIAL (BRIDION) IV ONE (12:04)
--- NOTE | 2021-07-24 12:08 | Progress Note-Post Operative ---
Post-Operative Progess Note Surgeon (s)/Back Stayer (s) Surgeon YASMIN RAMIREZ DO Back Stayer: Partha Pre-Operative Diagnosis Cholelithiasis/Cholecystitis Post-Operative Diagnosis same Procedure & Operative Findings Date of Procedure 07/24/21 Procedure Performed/Findings PROCEDURE: Laparoscopic cholecystectomy with intraoperative cholangiogram. COMPLICATIONS: None. PROCEDURE: The patient was taken to the operating suite and was prepped and draped in sterile fashion. A surgical pause was performed. Just superior to the umbilicus, a 12 mm incision was made. Dissection was taken down to the fascia, which was then scored and grasped with a Sundeep and the abdomen was then entered. A 0 Vicryl suture was placed in a oafoob-uz-qxmhr fashion and a Lizama trocar was placed and secured. Pneumoperitoneum was achieved. A 5mm trochar place in the subxyphoid and 2 in the right upper quadrant. Adhesions were noted to the gallbladder, this usually indicates previous attacks. Adhesions taken down with the bovie cautery. The gallbladder was then grasped at the fundus and elevated. The other grasper was used to grasp at Luisa's pouch and pull inferior and lateral. The cystic duct, and cystic artery were then dissected out. Clip was placed on the distal portion of the cystic duct which was then partially transected. An arrow catheter was inserted into the duct. The cholangiogram was then performed. No filling defects and contrast made its way into the duodenum. Catheter removed. Clips were placed on proximal portion of the cystic duct and then the duct was then transected. Clips were placed along the proximal and distal portion of the cystic artery which was then transected. Hook cautery was used to dissect the gallbladder from the gallbladder fossa achieving hemostasis. The gallbladder was placed in an Endobag and removed through the 12 mm trocar site. The abdomen was then reinspected. Copious amounts of irrigation were used to irrigate the abdomen and there were no signs of active bleeding. Hemostasis had been achieved. The 12 mm fascial defect was then closed with 0 Vicryl suture that had been placed in a vgluyh-if-esiae fashion. The abdomen was then desufflated, the trocars were removed. The abdomen was then washed and dried. The skin was then closed using 4-0 Monocryl in a subcuticular fashion. The abdomen was washed and dried and Skin Affix was place over incisions. Patient tolerated the procedure well without any complications and was taken to the recovery room in stable condition. Dr. Chavis assisted on this case helping to make incisions, close incisions, identify anatomy and hold anatomy out of the way. Anesthesia Type GET Estimated Blood Loss Estimated blood loss (mL): scant Specimens/Packing Specimens Removed GB and contents YASMIN RAMIREZ DO Jul 24, 2021 12:08
--- NOTE | 2021-07-24 12:09 | Discharge Inst-Surgical ---
Discharge Inst-Surgical Depart Medication/Instructions New, Converted or Re-Newed RX: Other (Pt to use home OTC meds) Patient Instructions Follow up Appt: Make appointment for 1 week. [phone] Instructions: No lifting greater than 20 pounds. No strenuous activity. May shower in 24 hours, no tub bath or soaking. Use incentive spirometer at home as directed. No Smoking Skin/Wound Care: May remove bandages in am. You need to leave the Dermabond on incision it will fall off on it's own. Symptoms to Report: Appetite Changes, Extremity Discoloration, Numbness/Tingling, Swelling Increased, Bleeding Excessive, Eyesight Changes, Pain Increased, Urine Color Change, Constipation(Persistent), Fever over 101 degree F, Pain/Pressure in chest, Urinating Difficulty, Cough Up/Vomit Blood, Heart Beat Irreg/Pounding, Pain/Pressure in jaw, Cramps in feet or legs, Lightheadedness, Pain/Pressure in shoulder, Diarrhea(Persistent), Memory Changes Suddenly, Questions/Concerns, Weight gain consecutive days, Dizziness/Fainting, Nausea/Vomiting, Shortness of Breath, Weight gain over 2 pounds If questions or concerns contact your physician Or seek help at emergency department. Activity Activity as Tolerated: Yes Activity Instructions: Avoid Stress to Incision Driving Instructions: No Driving/Refer to Diet Discharge Diet: Avoid Fatty Foods, Low Fat/Low Cholesterol Diet After 24 Hours: Clear Liquid if Nauseous If Any Problems/Questions/Issu: Contact Your Physician, Go to Emergency Room Skin/Wound Care Infection Signs and Symptoms: Increased Redness, Foul Odor of Wound, Increased Drainage, Skin Itchy or Has a Rash, Increased Swelling, Temperature Above 101 F Wound Care Comment: heating pad to shoulder or neck tonight for pain Bathing Instructions: Shower Stitches/[place]/Dermabond Dis: Dermabond Ice Pack: Ice On and Off Site YASMIN RAMIREZ DO Jul 24, 2021 12:09
[2021-07-24] MEDS ORDERED: hydrALAZINE (APESOLINE) 20 MG/ML VIAL ONE (12:10)
[2021-07-24] MEDS ORDERED: HYDROmorphone 2 MG/ML VIAL (DILAUDID) IV ONE (12:30)
[2021-07-24] MEDS ORDERED: ONDANSETRON 4 MG/2 ML (SDV) Z0FRAN IVP PRN (12:30)
--- NOTE | 2021-07-24 13:00 | Diagnostic Imaging Report ---
INDICATION: Fluoroscopy during intraoperative cholangiogram. FINDINGS: Fluoroscopy was provided during intraoperative cholangiogram. 10 seconds of fluoroscopic time was utilized. 48 images were obtained. The images demonstrate contrast being injected via the cystic duct remnant. There is contrast within the intrahepatic and extrahepatic bile ducts. No filling defects are seen. Contrast flows into the duodenum. IMPRESSION: Fluoroscopy during intraoperative cholangiogram. Dictated by: Dictated on workstation # [id number]
--- NOTE | 2021-07-24 13:04 | Anesthesia-General Post-Op ---
General Patient Condition Mental Status/LOC: Same as Preop Cardiovascular: Satisfactory Nausea/Vomiting: Absent Respiratory: Satisfactory Pain: Controlled Complications: Absent Post Op Complications Complications None Follow Up Care/Instructions Patient Instructions None needed. Anesthesia/Patient Condition Patient Condition Patient is doing well, no complaints, stable vital signs, no apparent adverse anesthesia problems. No complications reported per nursing. D/C home per [facility] [place] Criteria: Yes ALICIA HARRIS CRNA Jul 24, 2021 13:04
[2021-07-24] MEDS ORDERED: ONDANSETRON 4 MG (ZOFRAN) ORAL DISSOLVE TAB PO ONE (15:15)
== END 2021-07-24 16:15 | disposition home or self-care (01) ==
LOC: SDC 08:00
PROVIDERS: ATTEND Surgery
DX: K80.10 Calculus of gallbladder with chronic cholecystitis without obstruction (principal); K66.0 Peritoneal adhesions (postprocedural) (postinfection); I10 Essential (primary) hypertension; E78.00 Pure hypercholesterolemia, unspecified; K21.9 Gastro-esophageal reflux disease without esophagitis; F32.A Depression, unspecified; F41.9 Anxiety disorder, unspecified; Z90.89 Acquired absence of other organs; Z79.891 Long term (current) use of opiate analgesic; Z87.891 Personal history of nicotine dependence; Z79.899 Other long term (current) drug therapy; Z90.710 Acquired absence of both cervix and uterus; Z80.41 Family history of malignant neoplasm of ovary
CPT/HCPCS: 76000; 87081

== ENCOUNTER 2021-08-03 01:02 | Emergency (ER) | payer MEDICARE, OTHER ==
[~2021-08-03] VITALS: Ht 160 cm; Wt 79.0 kg
[2021-08-03] MEDS ORDERED: cloNIDine 0.1 MG (CATAPRES) TAB PO ONE (02:00)
--- NOTE | 2021-08-03 02:03 | ED General ---
General Chief Complaint: Cardiac/General Problems Stated Complaint: HIGH BLOOD PRESSURE,180/108 Source of Information: Patient Exam Limitations: No Limitations History of Present Illness Date Seen by Provider: Aug 03, 2021 Time Seen by Provider: 01:42 Initial Comments Here with report of uncontrolled blood pressure. Noted that her blood pressure was 180s to 200s systolic tonight. She states she started feel little shaky and felt like her blood pressure was up. She checked it and it was. EMS was called as well. She refused transport but came here by POV. She did take an extra dose of her lisinopril 10 mg p.o. She did that about an hour and a half ago. Despite that, her blood pressure has stayed up. Denies chest pain, breathing problems, weakness, nausea, vomiting or swelling. She just had cholecystectomy on July 24, 2021 and is healing well from that. States that she is having normal bowel movements and pain is controlled. She only used Tylenol after surgery. She used to take lisinopril 20 mg daily but that was decreased to 10 mg daily when her blood pressure was improving. She states in the summertime she exercises more but is exercising less in the winter and also ate quite a bit during the [place] season. Timing/Duration: 1-3 Hours Severity: Moderate Associated Systoms: No Chest Pain, No Cough, No Fever/Chills, No Nausea/Vomiting, No Shortness of Air, No Weakness Allergies and Home Medications Allergies Coded Allergies: ciprofloxacin (Unverified Allergy, Unknown, rash, 06/28/19) hydrocodone (Verified Allergy, Unknown, PASSING OUT, 01/13/18) iodine (Unverified Allergy, Unknown, 01/13/18) Uncoded Allergies: STEROIDS (Adverse Reaction, Unknown, 01/13/18) Patient Home Medication List Home Medication List Reviewed: Yes Cyanocobalamin (Vitamin B-12) (Vitamin B-12) 1,000 Mcg Tablet, 1,000 MCG PO DAILY, (Reported) Entered as Reported by: HA FARLEY on 06/28/19 0977 Dicyclomine HCl (Dicyclomine HCl) 10 Mg Capsule, 10 MG PO ACHS PRN for stomach cramping Prescribed by: CONCEPCION MUNSON on 06/30/19 1058 Dicyclomine HCl (Dicyclomine HCl) 10 Mg Capsule, 10 MG PO QID Prescribed by: KENDRA PATIÑO on 05/10/21 1657 Lisinopril (Lisinopril) 10 Mg Tablet, 10 MG PO BID, (Reported) Entered as Reported by: CYRUS ROACH on 01/13/18 1154 Multivitamin (Multi-Vitamin Daily) 1 Each Tablet, 1 EACH PO, (Reported) Entered as Reported by: VERONICA GILL on 07/18/21 0909 Mv-Mn/Iron/FA/Herbal Cmplx#190 (Vitamin D3 Complete Caplet) 1 Each Tablet, 1 EACH PO DAILY, (Reported) Entered as Reported by: VERONICA GILL on 07/18/21 0909 Turmeric Root Extract (Turmeric) 538 Mg Capsule, 538 MG PO HS, (Reported) Entered as Reported by: CYRUS ROACH on 01/13/18 1154 Review of Systems Review of Systems Constitutional: see HPI; No chills, No fever EENTM: throat pain (Left gland); No nose congestion Respiratory: No cough, No short of breath Cardiovascular: No chest pain, No edema Gastrointestinal: No nausea, No vomiting Genitourinary: no symptoms reported Musculoskeletal: no symptoms reported Psychiatric/Neurological: See HPI; Denies Headache; Other (Shaky feeling) All Other Systems Reviewed Negative Unless Noted: Yes Past Yirzndw-Intgep-Chwvdn Hx Patient Social History Tobacco Use?: No Use of E-Cig and/or Vaping dev: No Substance use?: No Alcohol Use?: No Pt feels they are or have been: No Immunizations Up To Date Tetanus Booster (TDap): More than 5yrs First/Initial COVID19 Vaccinat: declined Second COVID19 Vaccination Jeff: NO Third COVID19 Vaccination Date: NO Seasonal Allergies Seasonal Allergies: Yes Past Medical History Surgery/Hospitalization HX: HYSTERECTOMY/OVARIES INTACT --HAD APPENDECTOMY AT SAME TIME EGD AND COLONOSCOPY 01/[address] 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 Sexually Transmitted Disease: No HIV/AIDS: No Genitourinary: No Gastrointestinal: Yes (GALLBLADDER PAIN) Colitis, Gastroesophageal Reflux, Ulcer, Gall Bladder Disease Musculoskeletal: Yes Rheumatoid Arthritis Endocrine: No HEENT: No Loss of Vision: Bilateral Hearing Impairment: Denies Cancer: No Psychosocial: Yes Anxiety Integumentary: No Blood Disorders: No Adverse Reaction/Blood Tranf: No (N/A) Family Medical History Reviewed Nursing Family Hx Father (cancer unspecified) Mother ( Hx of lung disease andf heart disease) Physical Exam Vital Signs Vital Signs - First Documented 08/03/21 01:30 Temp 37.0 Pulse 75 Resp 21 B/P (MAP) 200/108 (138) Pulse Ox 96 O2 Delivery Room Air Capillary Refill : Height, Weight, BMI Height: 5'0.00" Weight: 157lbs. 0.0oz. 71.223452sw; 34.01 BMI Method:Stated General Appearance: No Apparent Distress, WD/WN HEENT: PERRL/EOMI, Pharynx Normal Neck: Full Range of Motion, Normal Inspection, Non Tender, Supple; No Lymphadenopathy (L), No Lymphadenopathy (R) Respiratory: Lungs Clear, Normal Breath Sounds Cardiovascular: Regular Rate, Rhythm, No Murmur Gastrointestinal: Non Tender, Soft Back: Normal Inspection, No CVA Tenderness, No Vertebral Tenderness Extremity: Normal Range of Motion, Non Tender, No Calf Tenderness, No Pedal Edema Neurologic/Psychiatric: Alert, Oriented x3, No Motor/Sensory Deficits Skin: Normal Color, Warm/Dry Progress/Results/Core Measures Suspected Sepsis SIRS Temperature: Pulse: Respiratory Rate: Laboratory Tests 08/03/21 01:35: White Blood Count 7.5 Blood Pressure / Mean: Laboratory Tests 08/03/21 01:35: Creatinine 0.81, Platelet Count 283, Total Bilirubin 0.4 Results/Orders Lab Results Laboratory Tests Test 08/03/21 01:35 Range/Units White Blood Count 7.5 4.3-11.0 10^3/uL Red Blood Count 4.25 3.80-5.11 10^6/uL Hemoglobin 12.5 11.5-16.0 g/dL Hematocrit 38 35-52 % Mean Corpuscular Volume 90 80-99 fL Mean Corpuscular Hemoglobin 29 25-34 pg Mean Corpuscular Hemoglobin Concent 33 32-36 g/dL Red Cell Distribution Width 12.7 10.0-14.5 % Platelet Count 283 130-400 10^3/uL Mean Platelet Volume 10.4 9.0-12.2 fL Immature Granulocyte % (Auto) 0 % Neutrophils (%) (Auto) 77 H 42-75 % Lymphocytes (%) (Auto) 16 12-44 % Monocytes (%) (Auto) 6 0-12 % Eosinophils (%) (Auto) 1 0-10 % Basophils (%) (Auto) 0 0-10 % Neutrophils # (Auto) 5.8 1.8-7.8 10^3/uL Lymphocytes # (Auto) 1.2 1.0-4.0 10^3/uL Monocytes # (Auto) 0.4 0.0-1.0 10^3/uL Eosinophils # (Auto) 0.1 0.0-0.3 10^3/uL Basophils # (Auto) 0.0 0.0-0.1 10^3/uL Immature Granulocyte # (Auto) 0.0 0.0-0.1 10^3/uL Sodium Level 140 135-145 MMOL/L Potassium Level 4.2 3.6-5.0 MMOL/L Chloride Level 106 98-107 MMOL/L Carbon Dioxide Level 22 21-32 MMOL/L Anion Gap 12 5-14 MMOL/L Blood Urea Nitrogen 13 7-18 MG/DL Creatinine 0.81 0.60-1.30 MG/DL Estimat Glomerular Filtration Rate 68 BUN/Creatinine Ratio 16 Glucose Level 111 H 70-105 MG/DL Calcium Level 9.6 8.5-10.1 MG/DL Corrected Calcium 9.6 8.5-10.1 MG/DL Total Bilirubin 0.4 0.1-1.0 MG/DL Aspartate Amino Transf (AST/SGOT) 9 5-34 U/L Alanine Aminotransferase (ALT/SGPT) 10 0-55 U/L Alkaline Phosphatase 124 40-136 U/L Troponin I < 0.028 <0.028 NG/ML Total Protein 7.5 6.4-8.2 GM/DL Albumin 4.0 3.2-4.5 GM/DL My Orders Orders - ARMIDA BUENROSTRO MD Cbc With Automated Diff (08/03/21 01:55) Comprehensive Metabolic Panel (08/03/21 01:55) Troponin I Tobias (08/03/21 01:55) Ed Iv/Invasive Line Start (08/03/21 01:55) Ekg Tracing (08/03/21 01:55) Monitor-Rhythm Ecg Trace Only (08/03/21 01:55) Clonidine Tablet (Catapres Tablet) (08/03/21 02:00) Medications Given in ED Current Medications Medications Dose Ordered Sig/Kody Route Start Time Stop Time Status Last Admin Dose Admin Clonidine HCl 0.1 mg ONCE ONCE PO 08/03/21 02:00 08/03/21 02:01 DC 08/03/21 02:06 0.1 MG Vital Signs/I&O 08/03/21 01:30 Temp 37.0 Pulse 75 Resp 21 B/P (MAP) 200/108 (138) Pulse Ox 96 O2 Delivery Room Air Capillary Refill : Progress Note : Progress Note Seen and evaluated. IV, labs and EKG ordered. Clonidine 0.1 mg p.o. ordered. Blood pressure trending down already with blood pressure prior to clonidine 170s/80s. Monitor patient. 0300: Blood pressure now down to 108/58 and patient is without symptoms. Labs reviewed and show no significant findings. We will continue the lisinopril 10 mg p.o. twice daily as this is how she did it yesterday and now I seem to have some better effect. She may need some further adjustments. She will call and make appointment with Dr. Burt. EKG and troponin negative. Discharged home with return precautions. Patient verbalized understanding of instructions and agreement with plan ECG Initial ECG Impression Date: Aug 03, 2021 Initial ECG Impression Time: 01:38 Initial ECG Rate: 72 Initial ECG Rhythm: Normal Sinus Initial ECG Impression: Normal Initial ECG Comparisson: No Previous ECG Available Comment Sinus rhythm with normal axis. No evidence of ST elevation [place]. Nonspecific interventricular conduction delay with QRS duration of 132. No previous marianela ilable for comparison. Interpreted by me. Departure Impression Primary Impression: Uncontrolled hypertension Disposition: 01 HOME, SELF-CARE Condition: Improved Departure-Patient Inst. Decision time for Depature: 03:01 Referrals: [facility] (PCP/Family) Primary Care Physician Patient Instructions: High Blood Pressure (DC) Add. Discharge Instructions: All discharge instructions reviewed with patient and/or family. Voiced understanding. You should continue to take your lisinopril but now take it twice daily. Follow-up with Dr. Burt this week for recheck and further evaluation. Call her office in the morning for appointment. Return for uncontrolled high blood pressure greater than 180 systolic, weakness, breathing problems, chest pain, nausea, vomiting, uncontrolled headache or other concerns as needed. You should avoid salt in your diet but otherwise drink an appropriate amount of fluids. Copy Copies To 1: CHARLES BURT MD, TIMOTHY D MD Aug 03, 2021 02:03
[2021-08-03 02:06] LABS: CHLORIDE 106 MMOL/L (98-107); POTASSIUM 4.2 MMOL/L (3.6-5.0); SODIUM 140 MMOL/L (135-145)
[2021-08-03 02:07] LABS: CALCIUM 9.6 MG/DL (8.5-10.1)
[2021-08-03 02:08] LABS: GLUCOSE 111 MG/DL (70-105)
[2021-08-03 02:09] LABS: BASOPHILS % (AUTO) 0 % (0-10); EOSINOPHILS # (AUTO) 0.1 10^3/uL (0.0-0.3); EOSINOPHILS % (AUTO) 1 % (0-10); HEMATOCRIT 38 % (35-52); HEMOGLOBIN 12.5 g/dL (11.5-16.0); LYMPHOCYTES # (AUTO) 1.2 10^3/uL (1.0-4.0); LYMPHOCYTES % (AUTO) 16 % (12-44); MEAN CORPUSCULAR HEMOGLOBIN 29 pg (25-34); MEAN CORPUSCULAR HGB CONC 33 g/dL (32-36); MEAN CORPUSCULAR VOLUME 90 fL (80-99); MEAN PLATELET VOLUME 10.4 fL (9.0-12.2); MONOCYTES # (AUTO) 0.4 10^3/uL (0.0-1.0); MONOCYTES % (AUTO) 6 % (0-12); NEUTROPHILS # (AUTO) 5.8 10^3/uL (1.8-7.8); NEUTROPHILS % (AUTO) 77 % (42-75); PLATELET COUNT 283 10^3/uL (130-400); TOTAL PROTEIN 7.5 GM/DL (6.4-8.2); WHITE BLOOD COUNT 7.5 10^3/uL (4.3-11.0)
[2021-08-03 02:10] LABS: BILIRUBIN,TOTAL 0.4 MG/DL (0.1-1.0); CARBON DIOXIDE 22 MMOL/L (21-32)
[2021-08-03 02:12] LABS: ALKALINE PHOSPHATASE 124 U/L (40-136); CREATININE SERUM 0.81 MG/DL (0.60-1.30); GFR ESTIMATED 68
[2021-08-03 02:13] LABS: BUN/CREATININE RATIO 16
[2021-08-03 02:15] LABS: ALANINE AMINOTRANSFERASE 10 U/L (0-55)
[2021-08-03 03:10] VITALS: BP 117/64
== END 2021-08-03 03:10 | disposition home or self-care (01) ==
LOC: EDUNIT# 01:02 → ER 01:04
DX: I10 Essential (primary) hypertension (principal)
CPT/HCPCS: 36415; 80053; 84484; 85025; 93005; 93041

== ENCOUNTER 2022-08-14 08:38 | Emergency (ER) | payer MEDICARE, OTHER ==
[~2022-08-14] VITALS: Ht 152 cm; Wt 68.0 kg
[2022-08-14 08:45] VITALS: BP 170/88
--- NOTE | 2022-08-14 08:52 | ED General ---
General Chief Complaint: Fever-Adult/Adol Stated Complaint: FEVER | SORE THROAT | BODY ACHES Source of Information: Patient Exam Limitations: No Limitations History of Present Illness Date Seen by Provider: Aug 14, 2022 Time Seen by Provider: 08:48 Initial Comments Patient is a 77-year-old female who presents to the emergency room with a chief complaint of fever, 101 this morning, sore throat, mild cough a little bit of urge for diarrhea and generalized body aches. Symptom onset yesterday. She threw a 100 your birthday republican for her mother about a week ago at [facility]. She thinks that is when she might of been exposed. She is not flu or COVID vaccinated. She denies headache, runny nose or earache. She does have a sore throat. She is not short of breath. No chest pain. No abdominal pain nausea or vomiting. No urinary difficulties. No rashes, joint pain or swelling. She did not take any Tylenol for her symptoms this morning. On arrival patient is pleasant, interactive nontoxic in appearance. Room air saturations 97%. Slightly hypertensive, she did take her blood pressure medicine prior to arrival. She does take daily blood pressure medication. Also has a history of hypercholesterolemia but cannot tolerate medications for this. All other review of systems reviewed and negative except as stated. Timing/Duration: 24 Hours Severity: Moderate Associated Systoms: Cough, Fever/Chills, Malaise, Weakness, Other (body aches) Allergies and Home Medications Allergies Coded Allergies: ciprofloxacin (Unverified Allergy, Unknown, rash, 06/28/19) hydrocodone (Verified Allergy, Unknown, PASSING OUT, 01/13/18) iodine (Unverified Allergy, Unknown, 01/13/18) Uncoded Allergies: STEROIDS (Adverse Reaction, Unknown, 01/13/18) Patient Home Medication List Home Medication List Reviewed: Yes Cyanocobalamin (Vitamin B-12) (Vitamin B-12) 1,000 Mcg Tablet, 1,000 MCG PO DAILY, (Reported) Entered as Reported by: HA FARLEY on 06/28/19 0915 Dicyclomine HCl (Dicyclomine HCl) 10 Mg Capsule, 10 MG PO ACHS PRN for stomach cramping Prescribed by: CONCEPCION MUNSON on 06/30/19 1058 Dicyclomine HCl (Dicyclomine HCl) 10 Mg Capsule, 10 MG PO QID Prescribed by: KENDRA PATIÑO on 05/10/21 1657 Lisinopril (Lisinopril) 10 Mg Tablet, 10 MG PO BID, (Reported) Entered as Reported by: CYRUS ROACH on 01/13/18 1154 Multivitamin (Multi-Vitamin Daily) 1 Each Tablet, 1 EACH PO, (Reported) Entered as Reported by: VERONICA GILL on 07/18/21 0909 Mv-Mn/Iron/FA/Herbal Cmplx#190 (Vitamin D3 Complete Caplet) 1 Each Tablet, 1 EACH PO DAILY, (Reported) Entered as Reported by: VERONICA GILL on 07/18/21 0909 Turmeric Root Extract (Turmeric) 538 Mg Capsule, 538 MG PO HS, (Reported) Entered as Reported by: CYRUS ROACH on 01/13/18 1154 Review of Systems Review of Systems Constitutional: see HPI, fever, malaise EENTM: throat pain Respiratory: cough Cardiovascular: no symptoms reported Gastrointestinal: no symptoms reported Genitourinary: no symptoms reported : No Musculoskeletal: other (bodyaches) Skin: no symptoms reported Psychiatric/Neurological: No Symptoms Reported Past Vgysdwp-Httvjf-Xnsqii Hx Immunizations Up To Date Tetanus Booster (TDap): More than 5yrs First/Initial COVID19 Vaccinat: declined Second COVID19 Vaccination Jeff: NO Third COVID19 Vaccination Date: NO Seasonal Allergies Seasonal Allergies: Yes Past Medical History Surgery/Hospitalization HX: HYSTERECTOMY/OVARIES INTACT --HAD APPENDECTOMY AT SAME TIME EGD AND COLONOSCOPY 01/[address] 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 Sexually Transmitted Disease: No HIV/AIDS: No Genitourinary: No Gastrointestinal: Yes (GALLBLADDER PAIN) Colitis, Gastroesophageal Reflux, Ulcer, Gall Bladder Disease Musculoskeletal: Yes Rheumatoid Arthritis Endocrine: No HEENT: No Loss of Vision: Bilateral Hearing Impairment: Denies Cancer: No Psychosocial: Yes Anxiety Integumentary: No Blood Disorders: No Adverse Reaction/Blood Tranf: No (N/A) Family Medical History Father (cancer unspecified) Mother ( Hx of lung disease andf heart disease) Physical Exam Vital Signs Vital Signs - First Documented 08/14/22 08:45 Temp 37.9 Pulse 89 Resp 20 B/P (MAP) 170/88 (115) Pulse Ox 96 O2 Delivery Room Air Capillary Refill : Height, Weight, BMI Height: 5'0.00" Weight: 157lbs. 0.0oz. 71.347160zj; 30.00 BMI Method:Stated General Appearance: No Apparent Distress, WD/WN Eyes: Bilateral Eye Normal Inspection, Bilateral Eye PERRL, Bilateral Eye EOMI HEENT: PERRL/EOMI, Pharynx Normal, Other (tonsils surgically absent) Neck: Normal Inspection, Supple Respiratory: Lungs Clear, Normal Breath Sounds, No Accessory Muscle Use, No Respiratory Distress Cardiovascular: Regular Rate, Rhythm, Normal Peripheral Pulses Gastrointestinal: Non Tender, Soft Extremity: Normal Capillary Refill, Normal Inspection, Normal Range of Motion, Non Tender, No Calf Tenderness Neurologic/Psychiatric: Alert, Oriented x3, No Motor/Sensory Deficits, Normal 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, 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 Norm as Tested Skin: Normal Color, Warm/Dry Progress/Results/Core Measures Suspected Sepsis SIRS Temperature: Pulse: Respiratory Rate: Blood Pressure / Mean: Results/Orders Lab Results Laboratory Tests Test 08/14/22 08:46 Range/Units Influenza Type A (RT-PCR) Not Detected Not Detecte Influenza Type B (RT-PCR) Not Detected Not Detecte SARS-CoV-2 RNA (RT-PCR) Detected H Not Detecte My Orders Orders - ANTONINO MERCADO MD Covid 19 Inhouse Test (08/14/22 08:46) Influenza A And B By Pcr (08/14/22 08:46) Isolation Central Supply Req (08/14/22 08:46) Acetaminophen Tablet (Tylenol Tablet) (08/14/22 09:00) Medications Given in ED Current Medications Medications Dose Ordered Sig/Kody Route Start Time Stop Time Status Last Admin Dose Admin Acetaminophen 1,000 mg ONCE ONCE PO 08/14/22 09:00 08/14/22 09:01 DC 08/14/22 09:02 1,000 MG Vital Signs/I&O 08/14/22 08:45 Temp 37.9 Pulse 89 Resp 20 B/P (MAP) 170/88 (115) Pulse Ox 96 O2 Delivery Room Air Capillary Refill : Progress Note : Time: 09:41 Progress Note Patient seen and examined, 77-year-old with 24 to 36 hours of body aches, fever sore throat and cough. Evaluation includes physical exam, COVID and flu testing. Patient clinically has stable vital signs, no concerning findings for pneumonia/sepsis/respiratory distress. No other concerning findings on HPI or physical exam. She is COVID-positive. I have talked with her about Paxlovid dosing to reduce length of illness and severity. She is agreeable. We will also send some Zofran to [facility] pharmacy for her nausea. Patient is counseled on return precautions. She verbalized understanding. All questions are sought and answered. Patient is stable for discharge. Departure Impression Primary Impression: COVID-19 Disposition: 01 HOME, SELF-CARE Condition: Stable Departure-Patient Inst. Decision time for Depature: 09:34 Referrals: SHAJI CAMILO,LOCAL PHYSICIAN (PCP) Primary Care Physician Patient Instructions: COVID-19 ED Add. Discharge Instructions: Please drink plenty of fluids to stay well-hydrated. You can take [id number] ibuprofen, 3 tablets which is 600 mg every 6 hours for body aches and fever over 100.4. Always take ibuprofen with food. You can alternate dosing with extra strength Tylenol, 2 tablets which is 1000 mg also every 6 hours. This will help with fever. You will need to quarantine for 5 days from the onset of symptoms, masking around family members. I have written you a prescription for Paxlovid, the antiviral used to treat COVID and help reduce severity of illness as well as the length of illness. Please take this as directed. Please return to the emergency department if you have any worsening symptoms of body ache, high fever, shortness of breath or any other emergent, concerning symptoms. Scripts Ondansetron (Ondansetron Odt) 4 Mg Tab.rapdis 4 MG SL Q8H PRN for NAUSEA/VOMITING, #10 TAB Prov: ANTONINO MERCADO MD 08/14/22 Nirmatrelvir/Ritonavir (Paxlovid 300-100 mg Pack (Eua)) 300 Mg (150 Mg X 2)-100 Mg Tab.ds.pk 1 EACH PO BID for 5 Days, #1 PKG Prov: ANTONINO MERCADO MD 08/14/22 ANTONINO MERCADO MD Aug 14, 2022 08:52
[2022-08-14] MEDS ORDERED: ACETAMINOPHEN 500 MG TAB (TYLENOL) PO ONE (09:00)
[2022-08-14] MEDS ORDERED: ONDA4TAB11 SL (09:41)
[2022-08-14] MEDS ORDERED: NIRM1TAB PO (09:41)
== END 2022-08-14 09:50 | disposition home or self-care (01) ==
LOC: EDUNIT# 08:38 → ER 08:40
DX: U07.1 COVID-19 (principal); R50.9 Fever, unspecified; R05.9 Cough, unspecified; M79.10 Myalgia, unspecified site; Z88.5 Allergy status to narcotic agent; Z28.310 Unvaccinated for COVID-19
CPT/HCPCS: 87636; 99283

== ENCOUNTER → 2022-10-20 | Outpatient (CLI) | payer MEDICARE, OTHER ==
[~2022-10-20] MED LIST changes: +NIRM1TAB PO; +ONDA4TAB11 SL
--- NOTE | 2022-10-20 17:38 | Diagnostic Imaging Report ---
PROCEDURE: CT sinuses without contrast TECHNIQUE: Multiple contiguous axial images were obtained through the sinuses without the use of intravenous contrast. Coronal and sagittal reformations were then performed. Auto Exposure Controls were utilized during the CT exam to meet ALARA standards for radiation dose reduction. INDICATION: Chronic sinusitis COMPARISONS: None FINDINGS: Axial images in sagittal and coronal reconstructions of the paranasal sinuses show well pneumatized maxillary sinuses. The ostiomeatal complexes are patent. There is slight nasoseptal deviation to the left. Ethmoid air cells, sphenoid sinuses and frontal sinuses are also well pneumatized. Orbits including both globes, retro-orbital extraconal, conal and intraconal spaces are normal. Zygomatic arches and pterygoid plates are symmetric. Mastoid air cells are well pneumatized. IMPRESSION: Well-pneumatized paranasal sinuses and mastoid air cells. The ostiomeatal complexes are patent. There is slight nasoseptal deviation to the left. Dictated by: Dictated on workstation # [id number]
== END ==
LOC: RAD 11:35
PROVIDERS: ATTEND Otolaryngology Otolaryngology/Facial Plastic Surgery
DX: J34.89 Other specified disorders of nose and nasal sinuses (principal); J32.9 Chronic sinusitis, unspecified
CPT/HCPCS: 70486

== ENCOUNTER → 2023-05-27 | Outpatient (CLI) | payer MEDICARE, OTHER ==
[~2023-05-27] VITALS: Ht 152.4 cm; Wt 63.5 kg
[~2023-05-27] MED LIST changes: +DICY-11 PO; -DICY10CA12 PO
== END | disposition home or self-care (01) ==
LOC: PREOP 08:48
PROVIDERS: ATTEND Surgery
DX: Z01.818 Encounter for other preprocedural examination (principal)

== ENCOUNTER 2023-06-01 10:31 | Day surgery (SDC) | payer MEDICARE, OTHER ==
[~2023-06-01] VITALS: Ht 152.4 cm; Wt 63.5 kg
[2023-06-01] MEDS ORDERED: LACTATED RINGERS 1,000 ML 1,000 ML IV STA (10:37)
--- NOTE | 2023-06-01 12:06 | Progress Note-Pre Operative ---
Pre-Operative Progress Note Date of Available H&P: May 26, 2023 Date H&P Reviewed: Jun 01, 2023 Time H&P Reviewed: 12:03 History & Physical: H&P Reviewed, Patient Examed, No changes noted Pre-Operative Diagnosis: + YASMIN Crespo DO Jun 01, 2023 12:06
--- NOTE | 2023-06-01 12:46 | Progress Note-Post Operative ---
Post-Operative Progess Note Surgeon (s)/End Packer (s) Surgeon YASMIN RAMIREZ DO End Packer: Katarina Cordero, MSIII Pre-Operative Diagnosis + cologuard Post-Operative Diagnosis Polyps int hemorrhoids Procedure & Operative Findings Date of Procedure 06/01/23 Procedure Performed/Findings Colonoscopy with snare polypectomy PROCEDURE NOTE: After informed consent was obtained, the patient was brought to the endoscopy suite, placed in bed in left lateral decubitus position. She was administered IV sedation by the ASSISTANT SUPERINTENDENT who then monitored her vitals the entire time, heart rate, blood pressure and pulse ox and the scope was inserted, pushed all the way to about 150 cm and pushed into the cecum, took a picture of appendiceal orifice and noted the ileocecal valve. Then slowly withdrew the scope insufflating to look circumferentially at the kaur starting in the cecum, up the ascending colon to the hepatic flexure, then down the transverse colon, splenic flexure, into the descending colon down and then into the sigmoid. I found a polyp here and elected to remove it with the snare. Finally, into the rectum where I found another small polyp that I also removed with the snare. In the rectal vault I retroflexed the scope and took a picture of the internal hemorrhoids. The patient tolerated the procedure. She was recovered in endoscopy suite. Recommended for repeat colonoscopy in 5 years. Anesthesia Type IV sedation by ASSISTANT SUPERINTENDENT Estimated Blood Loss Estimated blood loss (mL): scant Specimens/Packing Specimens Removed sigmoid polyp rectal polyp YASMIN RAMIREZ DO Jun 01, 2023 12:46
--- NOTE | 2023-06-01 12:47 | Endoscopy Discharge Instruct ---
Endo Procedure/Findings Findings 1.: Polyp 2.: Internal Hemorrhoids Discharge Instructions - Activity: You might feel a little sleepy until tomorrow. This is due to the medicine you received to relax you. Until tomorrow, you should: NOT drive a car, operate machinery or power tools. NOT drink any alcoholic beverages. NOT make any important decisions or sign importortant papers. Do not return to work until tomorrow, unless otherwise instructed. Resume previous activities tomorrow. Diet: Start by taking liquids. If you tolerate liquids, advance to solid food. 1.: Colonscopy in 5 years Notify Physician - If you experience excessive bleeding, unusual abdominal pain, fever, or chest pain, contact your doctor immediately. Follow-Up: Other Follow up in my office in one week YASMIN RAMIREZ DO Jun 01, 2023 12:47
--- NOTE | 2023-06-01 12:47 | Anesthesia-General Post-Op ---
MAC Patient Condition Mental Status/LOC: Same as Preop Cardiovascular: Satisfactory Nausea/Vomiting: Absent Respiratory: Satisfactory Pain: Controlled Complications: Absent Post Op Complications Complications None Follow Up Care/Instructions Patient Instructions None needed. Anesthesiology Discharge Order Discharge Order Patient is doing well, no complaints, stable vital signs, no apparent adverse anesthesia problems. No complications reported per nursing. SHANEL CASTAENDA CRNA Jun 01, 2023 12:47
[2023-06-01 12:48] VITALS: BP 104/54
[2023-06-01 12:53] VITALS: BP 105/53
[2023-06-01 13:00] VITALS: BP 105/53
[2023-06-01 13:30] VITALS: BP 120/57
[2023-06-01 13:45] VITALS: BP 120/57
== END 2023-06-01 13:45 | disposition home or self-care (01) ==
LOC: ENDO 10:31
PROVIDERS: ATTEND Surgery
DX: Z12.11 Encounter for screening for malignant neoplasm of colon (principal); K63.5 Polyp of colon; K64.8 Other hemorrhoids; Z87.891 Personal history of nicotine dependence
CPT/HCPCS: 88305